=== PATIENT | female | born 1940 | race Caucasian/White ===

== ENCOUNTER → 2017-08-22 08:53 | Outpatient (CLI) | payer MEDICARE, SELFPAY ==
--- NOTE | 2017-08-22 08:56 | ADU_ITS ---
Reason For Study: Atherosclerosis with claudication Right Velocities Left Velocities Common Iliac Artery, dist = 90.1 cm./sec. Ext Iliac Artery, dist = 73.5 cm./sec. Common Femoral Artery, prox = 101.0 cm./sec. Common Femoral Artery, prox = 88.0 cm./sec. Supf Femoral Artery, prox = 185.0 cm./sec. Supf. Femoral Artery, prox = 191.0 cm./sec. Absent color flow and doppler signal mid SFA. Supf. Femoral Artery, mid = 164.0 cm./sec. Supf Femoral Artery, dist. = 63.9 cm./sec. Supf. Femoral Artery, dist = 107.0 cm./sec. Profunda Femoral Artery = 136.0 cm./sec. Profunda Femoral Artery = 118.0 cm./sec. Popliteal Artery, prox. = 52.2 cm./sec. Popliteal Artery, proximal, = 47.5 cm./sec. Popliteal Artery, mid = 23.1 cm./sec. Popliteal Artery, mid = 79.7 cm./sec. Popliteal Artery, dist = 36.7 cm./sec. Popliteal Artery, distal = 28.1 cm./sec. Post. Tibial Artery, prox = 34.3 cm./sec. Post. Tibial Artery, prox = 25.2 cm./sec. Post. Tibial Artery, mid = 21.9 cm./sec. Post Tibial Artery, mid = 26.9 cm./sec. Post. Tibial Artery, dist = 32.1 cm./sec. Post Tibial Artery, dist. = 68.6 cm./sec. Peroneal Artery,dist = 12.4 cm./sec. Peroneal Artery, prox = 19.5 cm./sec. Ant. Tibial Artery, prox = 25.9 cm./sec. Peroneal Artery, mid = 24.3 cm./sec. Ant. Tibial Artery, mid = 23.1 cm./sec. Peroneal Artery,dist. = 26.4 cm./sec. Ant. Tibial Artery, dist = 21.9 cm./sec. Ant.Tibial Artery, prox = 42.6 cm./sec. Ant Tibial Artery, mid = 19.8 cm./sec. Ant. Tibial Artery, distal = 26.9 cm./sec. Procedure Exam performed in department. Interpretation Summary 1. right mid SFA occluded and collateral flow noted. 2. Left leg with no appreciable stenosis. Ordering Physician: Ignacio Moon Referring Physician: Ignacio Moon Performed By: Sandra Elliott RVT
--- NOTE | 2017-08-22 08:56 | AAVD_ITS ---
Reason For Study: Atherosclerosis Aorta Measurements Aorta Doppler Measurements Proximal aorta measures1.9 x 1.9cm. in cross- Peak systolic flow velocities within the proximal sectional axis. aorta measure 62.9 cm/sec. Proximal aorta measures1.8cm. in longitudinal Peak systolic flow velocities within the mid axis. aorta measure 50.2 cm/sec. Mid aorta measures1.3 x 1.3cm. in cross-sectionalPeak systolic flow velocities within the distal axis. aorta measure 61.1 cm/sec. Mid aorta measures1.4cm. in longitudinal axis. Distal aorta measures1.2 x 1.3cm. in cross- sectional axis. Distal aorta measures1.2cm. in longitudinal axis. Left Iliac Artery Left iliac artery measures .95 cm. in the longitudinal axis. Left iliac artery measures .98 x .91 cm. in the cross-sectional axis. Peak systolic velocity in the left iliac artery measures 188.0 cm/sec. Right Iliac Artery Right iliac artery measures .88 cm. in the longitudinal axis. Right iliac artery measures .88 x .93 cm. in the cross-sectional axis. Peak systolic velocity in the right iliac artery measures 74.4 cm/sec. Procedure Aorta IVC Iliac vasculature or bypass grafts 81099. Exam performed in department. Interpretation Summary 1. No aortoiliac aneurysm or stenosis. Ordering Physician: Ignacio Moon Referring Physician: Ignacio Moon Performed By: Sandra Elliott RVT
--- NOTE | 2017-08-24 10:59 | LEAS ---
Arterial Study - Arterial Study Arterial Study: Date of scan 08/22/[address] Moon History: Patient with arterial claudication. Interpretation: Right lower extremity appears to have pulsatile flow noted down at the ankle with a biphasic flow the posterior tibial and NICOLE 0.67 cluster of monophasic flow at the dorsalis pedis with an NICOLE 0.54. Left lower extremity with the biphasic flow the posterior tibial with an NICOEL 0.72 more of a monophasic and of the dorsalis pedis with an NICOLE 0.51. Impression: 1. Right lower extremity moderate arterial occlusive disease with an NICOLE 0.67 and biphasic flow. 2. Left lower extremity with moderate arterial occlusive disease with an NICOLE 0.72 and biphasic flow.
== END ==
PROVIDERS: Family Provider Family Medicine; PCP Family Medicine; Visit Provider Surgery Vascular Surgery
DX: I70.213 Atherosclerosis of native arteries of extremities with intermittent claudication, bilateral legs (principal); I70.0 Atherosclerosis of aorta; I77.1 Stricture of artery
CPT/HCPCS: 93922; 93923; 93925; 93978

== ENCOUNTER → 2017-08-29 09:34 | Outpatient (CLI) | payer MEDICARE, SELFPAY ==
[2017-08-29 10:41] LABS: Amphetamine Urine VISTA NEGATIVE (<1000 ng/mL); Barbiturate Urine VISTA NEGATIVE (< 200 ng/mL); Benzodiazepine Urine VISTA NEGATIVE (< 200 ng/mL); Cocaine Urine VISTA NEGATIVE (< 300 ng/mL); Ecstacy Urine VISTA NEGATIVE (< 500 ng/mL); Methadone Urine VISTA NEGATIVE (< 300 ng/mL); PCP Urine VISTA NEGATIVE (< 25 ng/mL); THC Urine VISTA NEGATIVE (< 50 ng/mL); Vista UDS pH Range 5
== END ==
PROVIDERS: Family Provider Family Medicine; PCP Family Medicine; Visit Provider Anesthesiology Pain Medicine
DX: F11.20 Opioid dependence, uncomplicated (principal)
CPT/HCPCS: 80307

== ENCOUNTER → 2017-12-15 18:13 | Outpatient (CLI) | payer MEDICARE, SELFPAY ==
--- NOTE | 2017-12-15 18:24 | RAD_ITS ---
STUDY: X-RAY - THORACIC SPINE REASON FOR EXAM: Female, 77 years old. Back pain. History of back surgery. TECHNIQUE: 2 view(s) of the thoracic spine were obtained. COMPARISON: November 29, 2016. FINDINGS: Normal kyphosis of the thoracic spine. There is no substantial scoliosis. No significant disc space narrowing. Small marginal osteophytes at multiple levels unchanged. There is a 1.2 cm round sclerotic density within a mid thoracic vertebral body unchanged probably representing an incidental hemangioma. No fracture identified. Sternal wires are present. The soft tissue structures are unremarkable. RAD/Thoracic Spine 3 Views IMPRESSION: Mild multilevel degenerative changes of the thoracic spine. Osseous hemangioma unchanged. Electronically Signed: Kye Smith MD at 8:17 EST , Service support ,
--- NOTE | 2017-12-15 18:30 | RAD_ITS ---
STUDY: X-RAY - LUMBAR SPINE REASON FOR EXAM: Female, 77 years old. Back pain. History of lower back surgery. TECHNIQUE: 3 view(s) of the lumbar spine were obtained. COMPARISON: August 24, 2013. FINDINGS: Normal lumbar lordosis. There is no substantial scoliosis. There is a normal alignment of the vertebrae. Vertebral bodies are normal. There is minimal progression of disc space narrowing and endplate degenerative changes since the prior study. Facet hypertrophy at L4-5 and L5-S1 unchanged. The soft tissue structures are unremarkable. There are now total bilateral hip arthroplasties in normal alignment. RAD/Lumbar Spine 2 or 3 Views IMPRESSION: Progression of mild degenerative changes of the lumbar spine. Electronically Signed: Kye Smith MD at 8:13 EST , Service support ,
== END ==
PROVIDERS: Family Provider Family Medicine; PCP Family Medicine; Visit Provider Anesthesiology Pain Medicine
DX: M54.9 Dorsalgia, unspecified (principal)
CPT/HCPCS: 72072; 72100

== ENCOUNTER 2017-12-26 07:56 | Observation (INO) | payer MEDICARE, SELFPAY ==
[2017-12-26 07:56] VITALS: BP 141/80; PULSE 76; RESP 18; TEMP 35.7; O2SAT 97; BMI 38.9
--- NOTE | 2017-12-26 08:07 | CT_ITS ---
STUDY: CT ABDOMEN AND PELVIS WITHOUT CONTRAST REASON FOR EXAM: Female, 77 years old. Chronic low back pain with radiation into the left lower extremity. RADIATION DOSAGE (If Supplied By Facility): CTDIvol = ( 23.24 ) mGy, DLP = ( 1569.54 ) mGycm TECHNIQUE: Transaxial images were obtained from the dome of the diaphragm to the symphysis pubis without oral contrast, and without intravenous contrast. Sagittal and coronal images were reconstructed. Individualized dose optimization techniques were used for this CT. COMPARISON: None. FINDINGS: Mild degree of increased markings at the lung bases suggestive of either atelectasis and/or scarring. The visualized portions of the heart are within normal limits. Normal liver. The patient is status post cholecystectomy. Normal spleen. Normal pancreas. Normal bilateral adrenal glands. Normal right kidney. Normal left kidney. Normal visualized stomach. Normal small intestine. There are multiple colonic diverticula consistent with diverticulosis. The appendix is visualized and appears normal. There is diffuse atherosclerotic calcification of the abdominal aorta, without a demonstrated aneurysm. Normal inferior vena cava. There is borderline retroperitoneal lymphadenopathy with enlarged nodes no greater than 10mm in the short axis diameter. Normal urinary bladder. There is absence of the uterus consistent with a prior hysterectomy. Normal abdominal wall. There are degenerative changes of the visualized lumbar spine. The patient is status post bilateral total hip replacement. This causes beam hardening artifact and limits visualization of the pelvis. CT/Abdomen/Pelvis W IV Cont ONLY IMPRESSION: Mild increased markings at the lung bases suggestive of scarring. Sigmoid diverticulosis. Status post bilateral total hip replacement. Electronically Signed: Nas Valdovinos MD at 9:41 EST Tel [phone], Service support ,
--- NOTE | 2017-12-26 08:10 | ED.VISSUMM ---
- ER Visit Summary Date of Service: 12/26/17 Chief Complaint: Back pain History of Present Illness: The patient is a 77 F presents to the emergency department with increasing back pain. Patient has a history of lower back pain. She had lumbar discectomy and fusion about a year ago. Her postoperative course was complicated with NE and pulmonary embolus. She had to have four-vessel CABG. She states that after surgery, her back pain was better, but obviously she had other health conditions. Over the past 3 weeks, her pain is been worsening. She was having radiation down her left leg. She did see Dr. Perez in the office. She did receive an injection in her low back, sounds like in the SI joint because she is on Plavix and cannot have epidural injection. She states it did help the burning down her leg, but she still had persistent pain in her back. She basically lays flat all day. She cannot stand and walk any distance. Family states they have been basically having to do 24-hour care for her because of her pain. She is been taking oral medications with very little improvement. She has had no abdominal pain. She denies any problems of bowel or bladder. Physical Examination: Afebrile, vitals unremarkable. Well-appearing female no acute distress. Head is normocephalic, atraumatic. Pupil's equal round reactive, extraocular muscles intact. Neck supple. Heart regular rate and rhythm. Lungs clear, chest nontender. Abdomen soft, nontender, nondistended. No pulsatile mass. Patient has paraspinal tenderness in the lumbar area, but no bony tenderness. Straight leg raise is negative bilaterally. 2+ symmetric lower extremity pulses. 2+ reflexes. No clonus. No weakness of dorsiflexion, plantar flexion, or extensor hallucis longus bilaterally. Test Results: [] Emergency Department Course and Treatment: The patient presents to the emergency department with worsening low back pain. It is to the point where she is basically unable to function. She has been bedbound for almost 3 weeks. She has followed with Dr. Perez and even had injections, but is still not improving. IV was established patient was given fluids, morphine, and Zofran. She did have significant improvement of her pain but then had return of her spasm. Labs do show some mild elevation of her BUN and creatinine, but again I feel that this is more likely because she is basically just been bedbound and unable to really eat and take care of herself. I did obtain a CT of her abdomen and pelvis given her history of vascular disease. There is no evidence of AAA or other dangerous intra-abdominal process. At this time, given the patient's advanced age, inability to function, continued pain despite outpatient management I do feel that she is going to require admission for pain control, physical therapy, and potential MRI. The patient was discussed with the hospitalist and will be admitted. Treatment Plan: [] Disposition: Admission Impression: 1. Intractable back pain with inability to ambulate This note was generated with [employer] dictation software. It may contain incorrect words, spelling, and punctuation that were not noted in review of the chart prior to signing ED Disposition - Plan for ED Patient: Chief Complaint: Back Referrals: Ezequiel Aly [Primary Care Provider] -
[2017-12-26] MEDS: Morphine 4 MG/ML Syringe IV (08:25)
[2017-12-26] MEDS: Ondansetron 4 MG/2 ML Vial IV (08:25)
[2017-12-26] MEDS: 0.9% Normal Saline 1,000 ML 125 ML IV (08:26)
[2017-12-26 08:34] LABS: Absolute Lymphocyte Count 1.44 X10^3/ul (0.83-4.51); Absolute Neutrophil Count 5.1 X10^3/uL (2.0-7.7); Basophil# 0.02 X10^3/uL; Basophil% 0.3 % (0-1); Eosinophil# 0.08 X10^3/uL; Eosinophils% 1.1 % (0-5); Hematocrit 42.8 % (37-47); Hemoglobin 13.8 g/dl (12.0-15.0); Lymphocyte # 1.44 X10^3/ul (4.0); Lymphocyte % 20.5 % (19-41); Mean Corp Hgb Conc 32.2 g/gl (32-36); Mean Corpuscular Hgb 28.7 pg (27.0-32.0); Mean Platelet Vol. 11.5 fl (6.2-12.0); Monocyte# 0.42 X10^3/uL; Neutrophil # 5.05 X10^3/uL (2.7-7.7); Platelet Count 182 K/mm3 (150-450); RBC Distribution Width CV 15.2 % (11.6-14.6); RBC Distribution Width SD 49.7 fl (35.1-43.9); Red Blood Count 4.81 M/mm3 (4.2-5.4)
[2017-12-26 08:38] LABS: POSITIVE COUNT NO; POSITIVE DIFFERENTIAL NO; POSITIVE MORPHOLOGY NO
[2017-12-26 08:53] LABS: ALB/GLOB Ratio 0.9 RATIO (0.9-2.4); AST(SGOT) 17 U/L (15-37); Alanine Aminotransfer ALT/SGPT 28 U/L (13-56); Albumin, Serum 3.1 g/dL (3.2-5.0); Alkaline Phosphatase 72 U/L (45-117); Anion Gap 16 (5-15); BUN 20 mg/dL (7-18); Calcium,Total 8.8 mg/dL (8.5-10.1); Chloride 109 mmol/L (98-107); Creatinine, Serum 1.05 mg/dL (0.55-1.02); EST Glomerular Filtration Rate 54 mL/min (>60); Est Glom Filt Rate - Afr Amer 65 mL/min (>60); Estimated Creatinine Clearance 57.83 ml/min; Globulin 3.4 g/dL (2.2-4.2); Glucose 128 mg/dL (74-106); Potassium 4.2 mmol/L (3.5-5.1); Protein, Total 6.5 g/dL (6.4-8.2); Sodium Level 144 mmol/L (136-145)
[2017-12-26] MEDS: LORazepam 2 MG/ML Syringe 0.5 MG IV (10:10)
[2017-12-26 10:21] VITALS: BP 148/79; PULSE 90; RESP 16; O2SAT 97
[2017-12-26 10:22] LABS: Bacteria 0 SEEN /hpf (None Seen); Mucous, Urine 0 SEEN /hpf (<or=2+)
[2017-12-26 10:26] LABS: Color, Urine Yellow (Yellow); Glucose, Dipstick Normal (Normal); Ketone-Dipstick Negative (Negative); Leukocyte Esterase-Dipstick 25 /ul (Negative); Nitrite-Dipstick Negative (Negative); Occult Blood-Urine 10 /ul (Negative); Protein-Dipstick 15 mg/dl (Negative); Urine Bilirubin Dipstick Negative (Negative); Urine Clarity Sl. Cloudy (Clear); Urine Urobilinogen Normal (Normal)
[2017-12-26 10:33] LABS: Red Blood Cells-Urine 0-5 SEEN /hpf (0-5); Squamous Epithelial Cells - UA 0-5 SEEN /hpf (5-10); White Blood Cells 0-5 SEEN /hpf (0-5)
[2017-12-26 11:47] VITALS: BMI 40.4; BMI 40.5
--- NOTE | 2017-12-26 11:51 | HP.PCM_ITS ---
Problem List (1) H/O four vessel coronary artery bypass graft Status: Chronic Comment: March 2016 (2) Peripheral arterial disease Status: Chronic (3) Coronary artery disease Status: Chronic (4) Lumbar disc degenerative disease Status: Chronic (5) medical management Status: Chronic (6) Asthma Status: Chronic (7) Hypertension Status: Chronic (8) Osteoarthritis Status: Chronic (9) Type 2 diabetes mellitus Status: Chronic (10) Acute intractable lower back pain Status: Acute History of Present Illness Date of Admission: 12/26/17 Chief Complaint: Severe lower back pain for 3 days The patient is a 77 year old F with multiple comorbidities including coronary artery disease status post four-vessel CABG, lumbar degenerative disc disease status post discectomy and fusion about a year ago, postoperative course complicated by MA and PE came to ER for progressive worsening of back pain for last [address]. [address] Perez and she had a pain shot in SI joint 2 times, last one probably about a month or 2 months ago. She further says she cannot have epidural injection as she is on Plavix. She also has peripheral arterial disease of lower extremities She denies acute neurological symptoms of cauda equina syndrome including new weakness, numbness or tingling or saddle anesthesia/although she has chronic incontinence and chronic tingling of toes. In the ED, she had abdomen pelvis CT which showed diffuse atherosclerotic calcification of abdominal aorta without aneurysm. Degenerative changes of lumbar spine although there was lot of artifact secondary to bilateral hip replacement. Previous lumbar spine x-ray in December 2017 shows minimal progression of mild degenerative changes of the lumbar spine with facet hypertrophy of L4-L5 and L5-S1 unchanged ] Past Medical History Past Medical History (Chronic Problems): Chronic Problems H/O four vessel coronary artery bypass graft (Chronic) March 2016 Peripheral arterial disease (Chronic) Coronary artery disease (Chronic) Lumbar disc degenerative disease (Chronic) Asthma (Chronic) medical management (Chronic) Osteoarthritis (Chronic) Hypertension (Chronic) Type 2 diabetes mellitus (Chronic) Allergies tetanus immune globulin Adverse Reaction (Verified 12/26/17 07:58) Swelling TAPE Adverse Reaction (Uncoded 12/26/17 07:58) Rash Home Medications: Ambulatory Orders Medication Instructions Recorded Metoprolol Tartrate 100 mg PO BID 10/12/13 Pantoprazole Sodium [Protonix] 40 mg PO DAILY 10/12/13 Ascorbic Acid [Vitamin C] 500 mg PO DAILY@0800 04/22/15 Aspirin [Aspirin, Baby] 81 mg PO DAILY@0800 04/22/15 Cholestyramine/Aspartame 0 gm DAILY 04/22/15 [Cholestyramine Light Powder] ALPRAZolam [Xanax] 0.5 mg PO DAILY PRN PRN 12/26/17 Clopidogrel Bisulfate [Plavix] 75 mg PO DAILY 12/26/17 Ezetimibe 10 mg PO DAILY 12/26/17 Furosemide [Lasix] 40 mg PO DAILY 12/26/17 [place]-3 Fatty Acids/Fish Oil [Fish 1 each PO DAILY 12/26/17 Oil 1,000 mg Capsule] Oxycodone Myristate [Xtampza ER] 9 mg PO BID 12/26/17 Potassium Chloride [K-Tab ER] 20 meq PO DAILY 12/26/17 Sacubitril/Valsartan 49-51 mg 1 each PO BID 12/26/17 [Entresto 49 mg-51 mg Tablet] Spironolactone [Aldactone] 12.5 mg PO DAILY 12/26/17 Tizanidine HCl [Zanaflex] 2 mg PO TID 12/26/17 Surgical History: cataract, cholecystectomy, hysterectomy, - - Tubal ligation, 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 Psychiatric History: No pertinent psych hx 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 history Smoking Status: Former smoker - *Family History Maternal History Items: No pertinent history Paternal History Items: No pertinent history Sibling History Items: No pertinent history Review of Systems Constitutional: Denies: Chills, Fever, Weight Change HEENT: Denies: Head Aches, Sinus Congestion, Sinus Drainage Cardiovascular: Denies: Chest Pain, Palpitations Respiratory: Denies: Cough, Shortness of breath at rest, Sputum production Gastrointestinal: Denies: Abdominal Pain, Nausea, Vomiting Genitourinary: Denies: Dysuria Musculoskeletal: Reports: Back Pain, Joint Pain, Joint stiffness, Joint Tenderness, Neck Pain Skin: Denies: Rash, Wounds Neurological: Reports: Balance problems, Tingling - Chronic tingling for long time. Denies: Focal weakness, Numbness Psychiatric: Denies: Anxiety, Depression, Homicidal Ideations, Suicidal Ideations Hematologic/ Lymphatic: Denies: Easy Bruising, Easy Bleeding VTE Information - Inpt Only VTE Present on Admission: No VTE Mechan Device Prophylaxis: None VTE Pharm Prophylaxis ordered?: Yes Patient Problems: Active and Suspected Problems Acute intractable lower back pain (Acute) - Physical Exam General: Alert, Oriented x3, Cooperative HEENT: Atraumatic, PERRLA, EOMI, Normocephalic Oral: Moist Mucosa Neck: Supple, No JVD, Negative Carotid Bruits Lungs: Clear to auscultation, No rhonchi, No wheeze, No rales, Diminished - Bilateral lung bases Cardiovascular: Regular rate, Regular Rhythm, Normal S1, Normal S2, No murmurs, - Abdomen: Bowel Sounds Present, Soft, Non Tender, Non-Distended Extremities: Capillary Refill Less than 3 Seconds, Diminished Peripheral Pulses - Diminished posterior tibialis and dorsalis pedis bilaterally more on left leg, Edema - Mild pedal edema Skin: No rashes, No breakdown Musculoskeletal: Arthritic Changes, Muscle Wasting, Tenderness - At left SI joint and lumbar and sacrococcygeal region Lymphatic: No Cervical, Supraclavicular, or Inguinal Adenopathy Neurological: Cranial nerves II-XII grossly intact, Deep Tendon Reflexes 2+/4 and Symmetrical, Neuro grossly intact Psych/Mental Status: Normal Affect, Appropriate Vital Signs Temp Pulse Resp BP Pulse Ox 96.3 F L 90 16 148/79 H 97 12/26/17 07:56 12/26/17 10:21 12/26/17 10:21 12/26/17 10:21 12/26/17 10:21 Weight: 187 lb Body Mass Index (BMI) 40.4 Finger Stick Blood Glucose 112 Laboratory Tests Past 24 Hrs 12/26/17 12/26/17 12/26/17 08:25 08:25 10:20 WBC 7.0 RBC 4.81 Hgb 13.8 Hct 42.8 MCV 89.0 MCH 28.7 MCHC 32.2 RDW 15.2 H RDW Differential 49.7 H Plt Count 182 MPV 11.5 Immature Gran % (Auto) 0.100 Neut % (Auto) 72.0 H Lymph % (Auto) 20.5 [place] % (Auto) 6.0 Eos % (Auto) 1.1 Baso % (Auto) 0.3 Absolute Neuts (auto) 5.1 Absolute Lymphs (auto) 1.44 Total Counted Not Reportable Sodium 144 Potassium 4.2 Chloride 109 H Carbon Dioxide 19.0 L Anion Gap 16 H BUN 20 H Creatinine 1.05 H Estim Creat Clear Calc 57.83 Est GFR (MDRD) Af Amer 65 Est GFR (MDRD) Non-Af 54 L BUN/Creatinine Ratio 19.0 Glucose 128 H Calcium 8.8 Total Bilirubin 0.40 AST 17 ALT 28 Alkaline Phosphatase 72 Total Protein 6.5 Albumin 3.1 L Globulin 3.4 Albumin/Globulin Ratio 0.9 Urine Color Yellow Urine Clarity Sl. Cloudy Urine pH 5.0 Ur Specific [place] 1.010 Urine Protein 15 H Urine Glucose (UA) Normal Urine Ketones Negative Urine Occult Blood 10 H Urine Nitrite Negative Urine Bilirubin Negative Urine Urobilinogen Normal Ur Leukocyte Esterase 25 H Urine RBC 0-5 SEEN Urine WBC 0-5 SEEN Ur Squamous Epith Cells 0-5 SEEN Urine Bacteria 0 SEEN Urine Mucus 0 SEEN Assessment/Plan All Active Problems Acute intractable lower back pain (Acute) The patient is a 77 year old F with multiple comorbidities including coronary artery disease status post four-vessel CABG, lumbar degenerative disc disease status post discectomy and fusion about a year ago, postoperative course complicated by MA and PE came to ER for progressive worsening of back pain for last [address]. [address] Perez and she had a pain shot in SI joint 2 times, last one probably about a month or 2 months ago. She further says she cannot have epidural injection as she is on Plavix. She also has peripheral arterial disease of lower extremities She denies acute neurological symptoms of cauda equina syndrome including new weakness, numbness or tingling or saddle anesthesia/although she has chronic incontinence and chronic tingling of toes. In the ED, she had abdomen pelvis CT which showed diffuse atherosclerotic calcification of abdominal aorta without aneurysm. Degenerative changes of lumbar spine although there was lot of artifact secondary to bilateral hip replacement. Previous lumbar spine x-ray in December 2017 shows minimal progression of mild degenerative changes of the lumbar spine with facet hypertrophy of L4-L5 and L5-S1 unchanged 1. Acute on chronic back pain secondary to lumbosacral and SI degenerative arthritis: Patient is being admitted on the regular medical floor. Patient had 4 mg IV morphine and 0.5 mg IV Ativan in ED with no relief. Started on oxycodone IR and oxycodone CR with IV morphine for breakthrough pain. On Zanaflex. Started on Decadron 4 mg twice daily. Pain management consult. If pain is better, patient can have MRI lumbar sacral spine but for now there is no urgency and patient cannot lay back straight 2. Cardiac conditions: Coronary artery status post MA, four-vessel CABG, PE, peripheral arterial disease: Continue aspirin and Plavix. Continue cardiac medications including metoprolol, Entresto and Lasix. Patient follows Dr. Moon. 4. Diabetes mellitus type 2: Accu-Chek before meals and at bedtime and cover with NovoLog sliding scale. 5. Multiple chronic comorbidities including hypertension, chronic degenerative joint disease, asthma: Home medication reconciliation done. DVT prophylaxis: On Lovenox 40 mg subcut daily. Code Visit OBSV E&M: 99251 Initial observation care L3
[2017-12-26 12:41] VITALS: BP 103/45; PULSE 55; RESP 18; TEMP 36.4; O2SAT 98
[2017-12-26] MEDS: tiZANidine HCl 2 MG Tablet 4 MG PO ×2 (12:48→22:05)
[2017-12-26] MEDS: oxyCODONE CR 15 MG Tablet PO ×2 (12:49→22:04)
[2017-12-26] MEDS: Enoxaparin 40 MG/0.4 ML Syringe SC (12:50)
[2017-12-26] MEDS: 0.45% Normal Saline 1,000 ML 75 ML IV (12:55)
[2017-12-26 16:34] VITALS: BP 110/57; PULSE 57; RESP 18; TEMP 37; O2SAT 95
[2017-12-26] MEDS: oxyCODONE 5 MG Tablet 10 MG PO (18:55)
[2017-12-26] MEDS: SACUBITRIL/VALSARTAN 49-51 MG TABLET 1 EACH PO (22:03)
[2017-12-26 22:04] VITALS: BP 143/69; PULSE 67
[2017-12-26] MEDS: Metoprolol Tartrate 100 MG Tablet PO (22:04)
[2017-12-26] MEDS: Famotidine 20 MG Tablet PO (22:04)
[2017-12-26] MEDS: Zolpidem Tartrate 5 MG Tablet PO (22:05)
[2017-12-26 22:34] VITALS: BP 143/69; PULSE 68; RESP 14; TEMP 36.7; O2SAT 95
[2017-12-27 04:30] VITALS: BP 117/62; PULSE 71; RESP 16; TEMP 36.4; O2SAT 96
[2017-12-27] MEDS: tiZANidine HCl 2 MG Tablet 4 MG PO (04:55)
[2017-12-27] MEDS: oxyCODONE 5 MG Tablet 10 MG PO (04:55)
[2017-12-27 07:10] LABS: Anion Gap 8 (5-15); BUN 13 mg/dL (7-18); BUN/Creat Ratio 20.9 RATIO (10-20); Calcium,Total 8.5 mg/dL (8.5-10.1); Chloride 109 mmol/L (98-107); Creatinine, Serum 0.62 mg/dL (0.55-1.02); EST Glomerular Filtration Rate 98 mL/min (>60); Est Glom Filt Rate - Afr Amer 119 mL/min (>60); Estimated Creatinine Clearance 63.07 ml/min; Glucose 160 mg/dL (74-106); Potassium 4.1 mmol/L (3.5-5.1); Sodium Level 139 mmol/L (136-145)
[2017-12-27 08:44] VITALS: O2SAT 95
[2017-12-27 09:13] VITALS: BP 126/89; PULSE 70; RESP 18; TEMP 36.9; O2SAT 96
[2017-12-27] MEDS: oxyCODONE CR 15 MG Tablet PO (09:15)
[2017-12-27] MEDS: Senna/Docusate Sodium 1 Tablet 2 TABLET PO (09:16)
[2017-12-27] MEDS: Famotidine 20 MG Tablet PO (09:16)
[2017-12-27] MEDS: Aspirin 81 MG TAB.CHEW PO (09:16)
[2017-12-27 09:17] VITALS: PULSE 70
[2017-12-27] MEDS: Pantoprazole Sodium 40 MG Tablet PO (09:17)
[2017-12-27] MEDS: Spironolactone 25 MG Tablet 12.5 MG PO (09:17)
[2017-12-27] MEDS: Metoprolol Tartrate 100 MG Tablet PO (09:17)
[2017-12-27] MEDS: Clopidogrel Bisulfate 75 MG Tablet PO (09:17)
[2017-12-27] MEDS: Ascorbic Acid 500 MG Tablet PO (09:17)
[2017-12-27] MEDS: Ezetimibe 10 MG Tablet PO (09:18)
[2017-12-27] MEDS: Enoxaparin 40 MG/0.4 ML Syringe SC (09:18)
[2017-12-27] MEDS: Furosemide 40 MG Tablet PO (09:20)
[2017-12-27] MEDS: SACUBITRIL/VALSARTAN 49-51 MG TABLET 1 EACH PO (09:21)
--- NOTE | 2017-12-27 10:14 | PCM.DC ---
- Discharge Diagnoses Current Active Problems: Current Active and Chronic Problems H/O four vessel coronary artery bypass graft (Chronic) March 2016 Peripheral arterial disease (Chronic) Coronary artery disease (Chronic) Lumbar disc degenerative disease (Chronic) Acute intractable lower back pain (Acute) You will use the following diet at home:: Calorie/Carbohydrate Controlled (specify 1200, 1400, etc) - 1800 ADA diet, Cardiac Your food should be the consistency of: Regular Discharge Activity: May Not Drive, May not drive while taking narcotic pain medications. Weight Bearing Status: Weight bearing as tolerated Call your doctor if you observe: Fever of 101 or Higher, Change in Color, Inability to urinate, Using more than one pad per hour, Shortness of breath, Dizziness, Fainting spells, Swelling in the ankles, Calf discomfort Allergies/Adverse Reactions: Allergies tetanus immune globulin Adverse Reaction (Verified 12/26/17 07:58) Swelling TAPE Adverse Reaction (Uncoded 12/26/17 07:58) Rash Medications to take at Discharge Pantoprazole Sodium [Protonix] 40 mg PO DAILY 10/12/13 Ascorbic Acid [Vitamin C] 500 mg PO DAILY@0800 04/22/15 Aspirin [Aspirin, Baby] 81 mg PO DAILY@0800 04/22/15 Cholestyramine/Aspartame [Cholestyramine Light Powder] 0 gm BID 04/22/15 ALPRAZolam [Xanax] 0.5 mg PO DAILY PRN PRN 12/26/17 Clopidogrel Bisulfate [Plavix] 75 mg PO DAILY 12/26/17 Ezetimibe 10 mg PO DAILY 12/26/17 Furosemide [Lasix] 40 mg PO DAILY 12/26/17 Metoprolol Succinate 100 mg PO 12/26/17 [place]-3 Fatty Acids/Fish Oil [Fish Oil 1,000 mg Capsule] 1 each PO DAILY 12/26/17 Oxycodone Myristate [Xtampza ER] 9 mg PO BID 12/26/17 Potassium Chloride [K-Tab ER] 20 meq PO DAILY 12/26/17 Sacubitril/Valsartan 49-51 mg [Entresto 49 mg-51 mg Tablet] 1 each PO BID 12/26/17 Spironolactone [Aldactone] 12.5 mg PO DAILY 12/26/17 Tizanidine HCl [Zanaflex] 2 mg PO TID 12/26/17 Dexamethasone 1 mg PO UD #21 tab 12/27/17 Senna/Docusate Sodium [Senokot-S] 2 tablet PO BID PRN PRN tablet 12/27/17 The following prescriptions were given: Dexamethasone 1 mg PO UD #21 tab Primary Care Physician: Ezequiel Aly [Primary Care Provider] - Please follow up with your Primary Care Physician in: in 1-2 weeks Test Results: Test results from this visit will be discussed in further detail at your follow-up appointment, if applicable. Please Follow Up With: Yane Perez MD When: in 1-2 weeks to schedule for epidural injection/MRI LS spine
--- NOTE | 2017-12-27 10:16 | DS.PCM_ITS ---
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 Peripheral arterial disease (Chronic) Coronary artery disease (Chronic) Lumbar disc degenerative disease (Chronic) Asthma (Chronic) medical management (Chronic) Osteoarthritis (Chronic) Hypertension (Chronic) Type 2 diabetes mellitus (Chronic) Hospital Course and Treatment Summary of Care Provided: [] The patient is a 77 year old F with multiple comorbidities including coronary artery disease status post four-vessel CABG, lumbar degenerative disc disease status post discectomy and fusion about a year ago, postoperative course complicated by OK and PE came to ER for progressive worsening of back pain for last [address]. [address] Perez and she had a pain shot in SI joint 2 times, last one probably about a month or 2 months ago. She further says she cannot have epidural injection as she is on Plavix. She also has peripheral arterial disease of lower extremities She denies acute neurological symptoms of cauda equina syndrome including new weakness, numbness or tingling or saddle anesthesia or paresthesia although she has chronic incontinence and chronic tingling of toes. In the ED, she had abdomen pelvis CT which showed diffuse atherosclerotic calcification of abdominal aorta without aneurysm. Degenerative changes of lumbar spine although there was lot of artifact secondary to bilateral hip replacement. Previous lumbar spine x-ray in December shows minimal progression of mild degenerative changes of the lumbar spine with facet hypertrophy of L4-L5 and L5-S1 unchanged. 1. Acute on chronic back pain secondary to lumbosacral and SI degenerative arthritis: Patient is being admitted on the regular medical floor. Patient had 4 mg IV morphine and 0.5 mg IV Ativan in ED with no relief. Started on oxycodone IR and oxycodone CR with IV morphine for breakthrough pain. On Zanaflex. Patient was started on Decadron 4 mg twice daily. The patient was seen by pain management Dr. Perez and he recommended to continue oxycodone CR. Advised follow-up in 1 week and will set up for epidural injection after 5 days of holding Plavix. Patient was able to walk to the bathroom on walker. Back pain resolved. Patient has mild tenderness over left sacral region. Follow with Dr. Perez in 1 week and might set up with MRI lumbar sacral spine as I do not see acute need in view of lack of neurological symptoms patient had CT abdomen and recent lumbar x-ray. 2. Cardiac conditions: Coronary artery status post OK, four-vessel CABG, PE, peripheral arterial disease: Continue aspirin and Plavix. Continue cardiac medications including metoprolol, Entresto and Lasix. Patient follows Dr. Moon. 4. Diabetes mellitus type 2: Accu-Chek before meals and at bedtime and cover with NovoLog sliding scale. 5. Multiple chronic comorbidities including hypertension, chronic degenerative joint disease, asthma: Home medication reconciliation done. DVT prophylaxis: On Lovenox 40 mg subcut daily. Discharge medication reconciliation done. Follow-up instructions completed. Patient given prescription for oxycodone controlled release, 9 mg twice daily total of 7 tablets, Zanaflex 2 mg 3 times daily and tapering dose of Decadron. Discharge medications and follow-up discussed with the patient and her daughter near the bedside. Total time spent, exact 35 minutes on discharge meds reconciliation, examination, review of imaging and blood test and discussion with the patient on follow-up instructions. Subjective: Seen and examined. Patient denies acute back pain and was able to walk to the bathroom on walker. Patient was able to move around with no significant back pain. Objective: General: Alert, Oriented x3, Cooperative HEENT: Atraumatic, PERRLA, EOMI, Normocephalic Oral: Moist Mucosa Neck: Supple, No JVD, Negative Carotid Bruits Lungs: Clear to auscultation, No rhonchi, No wheeze, No rales, Diminished - Bilateral lung bases Cardiovascular: Regular rate, Regular Rhythm, Normal S1, Normal S2, No murmurs, - Abdomen: Bowel Sounds Present, Soft, Non Tender, Non-Distended Extremities: Capillary Refill Less than 3 Seconds, Diminished posterior tibialis and dorsalis pedis bilaterally more on left leg, Edema -chronic mild pedal edema Skin: No rashes, No breakdown Musculoskeletal: Arthritic Changes, Muscle Wasting, mild tenderness on deep palpation- At left SI joint and lumbar and sacrococcygeal region Lymphatic: No Cervical, Supraclavicular, or Inguinal Adenopathy Neurological: Cranial nerves II-XII grossly intact, Deep Tendon Reflexes 2+/4 and Symmetrical, Neuro grossly intact Psych/Mental Status: Normal Affect, Appropriate - Physical Exam Vital Signs Temp Pulse Resp BP Pulse Ox 98.4 F 70 18 126/89 H 96 12/27/17 09:13 12/27/17 09:17 12/27/17 09:13 12/27/17 09:13 12/27/17 09:13 Oxygen Delivery Method Room Air Weight: 186 lb 15.232 oz Body Mass Index (BMI) 40.4 Finger Stick Blood Glucose 112 Intake and Output for Last 24 Hours 12/25/17 12/26/17 12/27/17 23:59 23:59 23:59 Intake Total 980 / 980 1115 / 1115 Balance 980 / 980 1115 / 1115 Laboratory Tests Past 24 Hrs 12/26/17 12/27/17 10:20 06:05 Sodium 139 Potassium 4.1 Chloride 109 H Carbon Dioxide 22.0 Anion Gap 8 BUN 13 Creatinine 0.62 Estim Creat Clear Calc 63.07 Est GFR (MDRD) Af Amer 119 Est GFR (MDRD) Non-Af 98 BUN/Creatinine Ratio 20.9 H Glucose 160 H Calcium 8.5 Urine Color Yellow Urine Clarity Sl. Cloudy Urine pH 5.0 Ur Specific [place] 1.010 Urine Protein 15 H Urine Glucose (UA) Normal Urine Ketones Negative Urine Occult Blood 10 H Urine Nitrite Negative Urine Bilirubin Negative Urine Urobilinogen Normal Ur Leukocyte Esterase 25 H Urine RBC 0-5 SEEN Urine WBC 0-5 SEEN Ur Squamous Epith Cells 0-5 SEEN Urine Bacteria 0 SEEN Urine Mucus 0 SEEN Discharge Activity: May Not Drive, May not drive while taking narcotic pain medications. Weight Bearing Status: Weight bearing as tolerated Call your doctor if you observe: Fever of 101 or Higher, Change in Color, Inability to urinate, Using more than one pad per hour, Shortness of breath, Dizziness, Fainting spells, Swelling in the ankles, Calf discomfort Home Medications: Medications to take at Discharge Pantoprazole Sodium [Protonix] 40 mg PO DAILY 10/12/13 Ascorbic Acid [Vitamin C] 500 mg PO DAILY@0800 04/22/15 Aspirin [Aspirin, Baby] 81 mg PO DAILY@0800 04/22/15 Cholestyramine/Aspartame [Cholestyramine Light Powder] 0 gm BID 04/22/15 ALPRAZolam [Xanax] 0.5 mg PO DAILY PRN PRN 12/26/17 Clopidogrel Bisulfate [Plavix] 75 mg PO DAILY 12/26/17 Ezetimibe 10 mg PO DAILY 12/26/17 Furosemide [Lasix] 40 mg PO DAILY 12/26/17 Metoprolol Succinate 100 mg PO 12/26/17 Zebulon-3 Fatty Acids/Fish Oil [Fish Oil 1,000 mg Capsule] 1 each PO DAILY 12/26/17 Potassium Chloride [K-Tab ER] 20 meq PO DAILY 12/26/17 Sacubitril/Valsartan 49-51 mg [Entresto 49 mg-51 mg Tablet] 1 each PO BID 12/26/17 Spironolactone [Aldactone] 12.5 mg PO DAILY 12/26/17 Dexamethasone 1 mg PO UD #21 tab 12/27/17 Oxycodone Myristate [Xtampza ER] 9 mg PO BID #7 cap.spr.12 12/27/17 Senna/Docusate Sodium [Senokot-S] 2 tablet PO BID PRN PRN tablet 12/27/17 Tizanidine HCl [Zanaflex] 2 mg PO TID #30 capsule 12/27/17 Following Prescrptions Were Given to Patient: Dexamethasone 1 mg PO UD #21 tab Oxycodone Myristate [Xtampza ER] 9 mg PO BID #7 cap.spr.12 Tizanidine HCl [Zanaflex] 2 mg PO TID #30 capsule Primary Care Physician: Ezequiel Aly [Primary Care Provider] - Please follow up with your Primary Care Physician in: in 1-2 weeks Please Follow Up With: Yane Perez MD When: in 1-2 weeks to schedule for epidural injection/MRI LS spine Medical Necessity - Tobacco Use Smoking Status: Former smoker Meaningful Use Info Meaningful Use Diagnoses (Choose all that apply): None applicable Code Visit OBSV E&M: 06495 Observation care discharge
[2017-12-27] MEDS: tiZANidine HCl 2 MG Tablet PO (13:11)
== END 2017-12-27 13:37 | disposition home or self-care (01) ==
LOC: ED 08:44 → MS3 11:03
PROVIDERS: Admitting Provider Internal Medicine; Emergency Provider Emergency Medicine; Family Provider Family Medicine; PCP Family Medicine; Visit Provider Internal Medicine
DX: M54.5 Low back pain (principal); M51.36 Other intervertebral disc degeneration, lumbar region; I25.10 Atherosclerotic heart disease of native coronary artery without angina pectoris; M19.90 Unspecified osteoarthritis, unspecified site; I10 Essential (primary) hypertension; J45.909 Unspecified asthma, uncomplicated; Z95.1 Presence of aortocoronary bypass graft; Z79.899 Other long term (current) drug therapy; Z79.82 Long term (current) use of aspirin; I25.2 Old myocardial infarction; Z86.711 Personal history of pulmonary embolism; Z98.1 Arthrodesis status; Z87.891 Personal history of nicotine dependence; Z79.02 Long term (current) use of antithrombotics/antiplatelets; E11.51 Type 2 diabetes mellitus with diabetic peripheral angiopathy without gangrene
CPT/HCPCS: 36415; 74177; 80048; 80053; 81001; 85025; 96361; 96372; 96374; 96375; 97162; 97165; 97802; 97803; 99218; 99282; J7030; Q9967; A4216; G0378; J2405

== ENCOUNTER → 2018-03-01 16:14 | Outpatient (CLI) | payer MEDICARE, SELFPAY ==
[2017-12-26 11:47] VITALS: BMI 40.4
[2018-03-01 18:11] LABS: Amphetamine Urine VISTA NEGATIVE (<1000 ng/mL); Barbiturate Urine VISTA NEGATIVE (< 200 ng/mL); Benzodiazepine Urine VISTA NEGATIVE (< 200 ng/mL); Cocaine Urine VISTA NEGATIVE (< 300 ng/mL); Ecstacy Urine VISTA NEGATIVE (< 500 ng/mL); Methadone Urine VISTA NEGATIVE (< 300 ng/mL); PCP Urine VISTA NEGATIVE (< 25 ng/mL); THC Urine VISTA NEGATIVE (< 50 ng/mL); Vista UDS pH Range 5
--- OUTSIDE RECORDS SUMMARY | 2018-05-03 18:45 | XMS RPT_ITS ---
:1940 Author Organization OHIP Support Name Relationship Address Phone LO [place]O Unavailable [address] + [place] [address] R Unavailable Unavailable Unavailable LAURA, ANNE/POA Unavailable Unavailable + [place] [address] LO [place] Unavailable [address] + [place] [address] R Unavailable Unavailable Unavailable LAURA, ANNE/POA Unavailable Unavailable + [place] [address] LO [place] Unavailable [address] + [place] [address] R Unavailable Unavailable Unavailable LAURA, ANNE/POA Unavailable Unavailable + [place] [address] LO [place] Unavailable [address] + [place] [address] R Unavailable Unavailable Unavailable LAURA, ANNE/POA Unavailable Unavailable + [place] [address] LO [place] Unavailable [address] + [place] [address] R Unavailable Unavailable Unavailable LAURA, ANNE Unavailable Unavailable + [place] [address] NOT GIVEN Unavailable Unavailable Unavailable LAURA, ANNE Unavailable [address] + [place] [address] NOT GIVEN Unavailable Unavailable Unavailable LAURA, ANNE Unavailable [address] + [place] [address] NOT GIVEN Unavailable Unavailable Unavailable LAURA, ANEN Unavailable [address] + [place] [address] NOT GIVEN Unavailable Unavailable Unavailable LAURA, ANNE Unavailable [address] + [place] [address] LO [place] Unavailable [address] + [place] [address] R Unavailable Unavailable Unavailable LAURA ANNE Unavailable Unavailable + [place] [address] LO [place] Unavailable [address] + [place] [address] R Unavailable Unavailable Unavailable LAURA ANNE Unavailable Unavailable + [place] [address] NOT GIVEN Unavailable Unavailable Unavailable LAURA, ANNE Unavailable [address] + [place] [address] NOT GIVEN Unavailable Unavailable Unavailable LAURA, ANNE Unavailable [address] + [place] [address] NOT GIVEN Unavailable Unavailable Unavailable LAURA, ANNE Unavailable [address] + [place] [address] NOT GIVEN Unavailable Unavailable Unavailable LAURA ANNE Unavailable [address] + [place] [address] NOT GIVEN Unavailable Unavailable Unavailable LAURA ANNE Unavailable [address] + [place] [address] Care Team Providers Name Role Phone VACCARIELLO, ANTONI Admitting Unavailable VACCARIELLO, ANTONI Attending Unavailable VACCARIELLO, ANTONI Primary Care Unavailable VACCARIELLO, ANTONI Consulting Unavailable PROVIDER, UNKNOWN Consulting Unavailable PROVIDER, UNKNOWN Consulting Unavailable PROVIDER, UNKNOWN Consulting Unavailable VACCARIELLO, ANTONI Consulting Unavailable SURAJ, ANNMARIE Primary Care Unavailable SURAJ, ANNMARIE Attending Unavailable SURAJ, ANNMARIE Admitting Unavailable PROVIDER, UNKNOWN Consulting Unavailable PROVIDER, UNKNOWN Consulting Unavailable PROVIDER, UNKNOWN Consulting Unavailable VACCARIELLO, ANTONI Admitting Unavailable VACCARIELLO, ANTONI Attending Unavailable VACCARIELLO, ANTONI Primary Care Unavailable VACCARIELLO, ANTONI Consulting Unavailable PROVIDER, UNKNOWN Consulting Unavailable PROVIDER, UNKNOWN Consulting Unavailable PROVIDER, UNKNOWN Consulting Unavailable VACCARIELLO, ANTONI Admitting Unavailable VACCARIELLO, ANTONI Attending Unavailable VACCARIELLO, ANTONI Primary Care Unavailable VACCARIELLO, ANTONI Consulting Unavailable PROVIDER, UNKNOWN Consulting Unavailable PROVIDER, UNKNOWN Consulting Unavailable PROVIDER, UNKNOWN Consulting Unavailable VACCARIELLO, ANTONI Admitting Unavailable VACCARIELLO, ANTONI Attending Unavailable VACCARIELLO, ANTONI Primary Care Unavailable VACCARIELLO, ANTONI Consulting Unavailable PROVIDER, UNKNOWN Consulting Unavailable PROVIDER, UNKNOWN Consulting Unavailable PROVIDER, UNKNOWN Consulting Unavailable VACCARIELLO, ANTONI Consulting Unavailable SURAJ, ANNMARIE Primary Care Unavailable SURAJ, ANNMARIE Attending Unavailable SURAJ, ANNMARIE Admitting Unavailable PROVIDER, UNKNOWN Consulting Unavailable PROVIDER, UNKNOWN Consulting Unavailable PROVIDER, UNKNOWN Consulting Unavailable SURAJ, ANNMARIE Admitting Unavailable SURAJ, ANNMARIE Attending Unavailable SURAJ, ANNMARIE Primary Care Unavailable SURAJ, ANNMARIE Admitting Unavailable SURAJ, ANNMARIE Attending Unavailable SURAJ, ANNMARIE Primary Care Unavailable VACCARIELLO, ANTONI Consulting Unavailable PROVIDER, UNKNOWN Consulting Unavailable PROVIDER, UNKNOWN Consulting Unavailable PROVIDER, UNKNOWN Consulting Unavailable SURAJ, ANNMARIE Admitting Unavailable SURAJ, ANNMARIE Attending Unavailable SURAJ, ANNMARIE Primary Care Unavailable VACCARIELLO, ATNONI Consulting Unavailable PROVIDER, UNKNOWN Consulting Unavailable PROVIDER, UNKNOWN Consulting Unavailable PROVIDER, UNKNOWN Consulting Unavailable Basali, Ayman Attending Unavailable Basali, Ayman Referring Unavailable Vaccariello, Antoni Primary Care Unavailable Ignacio Moon Attending Unavailable Ignacio Moon Referring Unavailable Vaccariello, Antoni Primary Care Unavailable Basali, Ayman Attending Unavailable Basali, Ayman Referring Unavailable Vaccariello, Antoni Primary Care Unavailable Basali, Ayman Attending Unavailable Vaccariello, Antoni Primary Care Unavailable Vaccariello, Antoni Primary Care Unavailable Miles, Gil Admitting Unavailable Miles, Gil Attending Unavailable Basali, Ayman Consulting Unavailable Miles, Gil Admitting Unavailable Miles, Gil Attending Unavailable Vaccariello, Antoni Primary Care Unavailable Miles, Gil Consulting Unavailable Miles, Gil Admitting Unavailable Miles, Gil Attending Unavailable Vaccariello, Antoni Primary Care Unavailable Basali, Ayman Consulting Unavailable Miles, Gil Consulting Unavailable PROBLEMS PROBLEMS DATE TYPE CONDITION / CODE ATTENDING STATUS SOURCE 03/02/2018 Unknown F11.20 - Opioid Basali, Ayman Active [place] dependence, Community uncomplicated / Hospital F11.20(ICD-10) Repository 12/27/2017 Unknown M54.5 - Low back Miles, Gil Active [facility] pain / M54.5(ICD-10) [facility] Hospital Repository 03/28/2017 Principle Encounter for VACCARIELLO, Active [facility] preprocedural [facility] examination / Repository I58916(ICD-10) 03/15/2017 Admitting Atherosclerotic SURAJ, 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 / I2510(ICD-10) 03/15/2017 Principle Atherosclerotic SURAJ, 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 / I2510(ICD-10) 03/15/2017 Secondary Presence of SURAJ, Active [facility] Diagnosis aortocoronary bypass [facility] graft / Z951(ICD-10) Hospital Repository 03/15/2017 Secondary Heart failure, SURAJ, Active [facility] Diagnosis unspecified / [facility] I509(ICD-10) Hospital Repository 03/15/2017 Secondary Other pulmonary SURAJ, Active [facility] Diagnosis embolism without [facility] acute cor pulmonale Hospital / I2699(ICD-10) Repository PROCEDURES PROCEDURES No Procedure Records FoundRESULTS RESULTS URINE DRUG SCREEN Collected: 03/01/2018 Status: F Source: NII (VISTA) 4:24 PM REPOSITORY Order Comment: List of Drugs Taken or Suspected? UNK TYPE CODE TESTS RESULT OUT OF RANGE REFERENCE UNITS LAB L505.0075 TO BE Normal CONFIRMED Result Comment: CONFIRMATORY TESTING FOR ALL POSITIVE URINE DRUG SCREEN RESULTS WILL ONLY BE SENT OUT UPON PHYSICIAN ORDER. VISTA Urine Drug Screen methods provide only preliminary analytical test results. A more specific alternate chemical method must be used in order to obtain a confirmed analytical result. Gas chromatography/mass spectrometery (GC/MS) is the preferred confirmatory method. Clinical consideration and professional judgement should be applied to any drug of abuse test result, particularly when preliminary positive results are used. URINE TCA TESTING MUST BE ORDERED SEPARATELY. USE TEST MNEMONIC: [facility] LAB L505.5005 VISTA UDS PH 5 Normal LAB L505.5015 <1000 ng/mL AMPHETAMINES Normal NEGATIVE LAB L505.5025 < 200 ng/mL BARBITIURATES Normal NEGATIVE LAB L505.5035 < 200 ng/mL BENZODIAZIPINE Normal NEGATIVE LAB L505.5045 < 300 ng/mL COCAINE Normal NEGATIVE LAB L505.5055 < 500 ng/mL ECSTACY Normal NEGATIVE LAB L505.5065 < 300 ng/mL METHADONE Normal NEGATIVE LAB L505.5075 < 300 High ng/mL OPIATES POSITIVE LAB L505.5085 < 25 ng/mL PCP Normal NEGATIVE LAB L505.5095 < 50 ng/mL THC Normal NEGATIVE Performed By: #### L505.5000 #### [facility] [address] [place], [address] DISCHARGE SUMMARY Observed: 12/27/2017 Status: F Source: SUMRALL 4:58 PM REPOSITORY [facility] Medical Records Department [address] [place] [address] Discharge Summary 12/27/17 1016 MR#: [id number] Acct: [id number] Name: THANG SULTANA V Rep #: [id number] : 1940 77 From: Gil Aquino MD PCP: Antoni Chou MD Status: DIS CIRILO Y Location: [place] [id number] 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 Peripheral arterial disease (Chronic) Coronary artery disease (Chronic) Lumbar disc degenerative disease (Chronic) Asthma (Chronic) medical management (Chronic) Osteoarthritis (Chronic) Hypertension (Chronic) Type 2 diabetes mellitus (Chronic) Hospital Course and Treatment Summary of Care Provided: [] The patient is a 77 year old F with multiple comorbidities including coronary artery disease status post four-vessel CABG, lumbar degenerative disc disease status post discectomy and fusion about a year ago, postoperative course complicated by [place] and PE came to ER for progressive worsening of back pain for last [address]. [address] Perez and she had a pain shot in SI joint 2 times, last one probably about a month or 2 months ago. She further says she cannot have epidural injection as she is on Plavix. She also has peripheral arterial disease of lower extremities She denies acute neurological symptoms of cauda equina syndrome including new weakness, numbness or tingling or saddle anesthesia or paresthesia although she has chronic incontinence and chronic tingling of toes. In the ED, she had abdomen pelvis CT which showed diffuse atherosclerotic calcification of abdominal aorta without aneurysm. Degenerative changes of lumbar spine although there was lot of artifact secondary to bilateral hip replacement. Previous lumbar spine x-ray in December shows minimal progression of mild degenerative changes of the lumbar spine with facet hypertrophy of L4-L5 and L5-S1 unchanged. 1. Acute on chronic back pain secondary to lumbosacral and SI degenerative arthritis: Patient is being admitted on the regular medical floor. Patient had 4 mg IV morphine and 0.5 mg IV Ativan in ED with no relief. Started on oxycodone IR and oxycodone CR with IV morphine for breakthrough pain. On Zanaflex. Patient was started on Decadron 4 mg twice daily. The patient was seen by pain management Dr. Perez and he recommended to continue oxycodone CR. Advised follow-up in 1 week and will set up for epidural injection after 5 days of holding Plavix. Patient was able to walk to the bathroom on walker. Back pain resolved. Patient has mild tenderness over left sacral region. Follow with Dr. Perez in 1 week and might set up with MRI lumbar sacral spine as I do not see acute need in view of lack of neurological symptoms patient had CT abdomen and recent lumbar x-ray. 2. Cardiac conditions: Coronary artery status post [place], four- vessel CABG, PE, peripheral arterial disease: Continue aspirin and Plavix. Continue cardiac medications including metoprolol, Entresto and Lasix. Patient follows Dr. Moon. 4. Diabetes mellitus type 2: Accu-Chek before meals and at bedtime and cover with NovoLog sliding scale. 5. Multiple chronic comorbidities including hypertension, chronic degenerative joint disease, asthma: Home medication reconciliation done. DVT prophylaxis: On Lovenox 40 mg subcut daily. Discharge medication reconciliation done. Follow-up instructions completed. Patient given prescription for oxycodone controlled release, 9 mg twice daily total of 7 tablets, Zanaflex 2 mg 3 times daily and tapering dose of Decadron. Discharge medications and follow-up discussed with the patient and her daughter near the bedside. Total time spent, exact 35 minutes on discharge meds reconciliation, examination, review of imaging and blood test and discussion with the patient on follow-up instructions. Subjective: Seen and examined. Patient denies acute back pain and was able to walk to the bathroom on walker. Patient was able to move around with no significant back pain. Objective: General: Alert, Oriented x3, Cooperative HEENT: Atraumatic, PERRLA, EOMI, Normocephalic Oral: Moist Mucosa Neck: Supple, No JVD, Negative Carotid Bruits Lungs: Clear to auscultation, No rhonchi, No wheeze, No rales, Diminished - Bilateral lung bases Cardiovascular: Regular rate, Regular Rhythm, Normal S1, Normal S2, No murmurs, - Abdomen: Bowel Sounds Present, Soft, Non Tender, Non-Distended Extremities: Capillary Refill Less than 3 Seconds, Diminished posterior tibialis and dorsalis pedis bilaterally more on left leg, Edema -chronic mild pedal edema Skin: No rashes, No breakdown Musculoskeletal: Arthritic Changes, Muscle Wasting, mild tenderness on deep palpation- At left SI joint and lumbar and sacrococcygeal region Lymphatic: No Cervical, Supraclavicular, or Inguinal Adenopathy Neurological: Cranial nerves II-XII grossly intact, Deep Tendon Reflexes 2+/4 and Symmetrical, Neuro grossly intact Psych/Mental Status: Normal Affect, Appropriate - Physical Exam Vital Signs Temp Pulse Resp BP Pulse Ox 98.4 F 70 18 126/89 H 96 12/27/17 09:13 12/27/17 09:17 12/27/17 09:13 12/27/17 09:13 12/27/17 09:13 Oxygen Delivery Method Room Air Weight: 186 lb 15.232 oz Body Mass Index (BMI) 40.4 Finger Stick Blood Glucose 112 Intake and Output for Last 24 Hours Intake Total 980 / 980 1115 / 1115 Balance 980 / 980 1115 / 1115 Laboratory Tests Past 24 Hrs Sodium 139 Potassium 4.1 Chloride 109 H Carbon Dioxide 22.0 Anion Gap 8 BUN 13 Creatinine 0.62 Estim Creat Clear Calc 63.07 Discharge Activity: May Not Drive, May not drive while taking narcotic pain medications. Weight Bearing Status: Weight bearing as tolerated Call your doctor if you observe: Fever of 101 or Higher, Change in Color, Inability to urinate, Using more than one pad per hour, Shortness of breath, Dizziness, Fainting spells, Swelling in the ankles, Calf discomfort Home Medications: Medications to take at Discharge Pantoprazole Sodium [Protonix] 40 mg PO DAILY 10/12/13 Ascorbic Acid [Vitamin C] 500 mg PO DAILY@0804/22/15 Aspirin [Aspirin, Baby] 81 mg PO DAILY@79904/22/15 Cholestyramine/Aspartame [Cholestyramine Light Powder] 0 gm BID 04/22/15 ALPRAZolam [Xanax] 0.5 mg PO DAILY PRN PRN 12/26/17 Clopidogrel Bisulfate [Plavix] 75 mg PO DAILY 12/26/17 Ezetimibe 10 mg PO DAILY 12/26/17 Furosemide [Lasix] 40 mg PO DAILY 12/26/17 Metoprolol Succinate 100 mg PO 12/26/17 Cheyenne-3 Fatty Acids/Fish Oil [Fish Oil 1,000 mg Capsule] 1 each PO DAILY 12/26/17 Potassium Chloride [K-Tab ER] 20 meq PO DAILY 12/26/17 Sacubitril/Valsartan 49-51 mg [Entresto 49 mg-51 mg Tablet] 1 each PO BID 12/26/17 Spironolactone [Aldactone] 12.5 mg PO DAILY 12/26/17 Dexamethasone 1 mg PO UD #21 tab 12/27/17 Oxycodone Myristate [Xtampza ER] 9 mg PO BID #7 cap.spr.12 12/27/17 Senna/Docusate Sodium [Senokot-S] 2 tablet PO BID PRN PRN tablet 12/27/17 Tizanidine HCl [Zanaflex] 2 mg PO TID #30 capsule 12/27/17 Following Prescrptions Were Given to Patient: Dexamethasone 1 mg PO UD #21 tab Oxycodone Myristate [Xtampza ER] 9 mg PO BID #7 cap.spr.12 Tizanidine HCl [Zanaflex] 2 mg PO TID #30 capsule Primary Care Physician: Antoni Chou [Primary Care Provider] - Please follow up with your Primary Care Physician in: in 1- 2 weeks Please Follow Up With: Yane Perez MD When: in 1-2 weeks to schedule for epidural injection/MRI LS spine Medical Necessity - Tobacco Use Smoking Status: Former smoker Meaningful Use Info Meaningful Use Diagnoses (Choose all that apply): None applicable Code Visit OBSV E AND M: 23749 Observation care discharge 12/27/17 2320 <Electronically signed by Gil Aquino MD> Date Gil Aquino MD Cosigner Signature (if applicable): Date CC: Antoni Chou MD; Gil Aquino MD Signed DISCHARGE INSTRUCTION Observed: 12/27/2017 Status: F Source: NII 10:16 AM REPOSITORY [facility] Medical Records Department [address] [place] [address] Instructions for Home/Discharge Instructions 12/27/17 1014 MR#: [id number] Acct: [id number] Name: THANG SULTANA V Rep #: [id number] : 1940 77 From: Gil Aquino MD PCP: Antoni Chou MD Status: ADM CIRILO - Discharge Diagnoses Current Active Problems: Current Active and Chronic Problems H/O four vessel coronary artery bypass graft (Chronic) March 2016 Peripheral arterial disease (Chronic) Coronary artery disease (Chronic) Lumbar disc degenerative disease (Chronic) Acute intractable lower back pain (Acute) You will use the following diet at home:: Calorie/Carbohydrate Controlled (specify 1200, 1400, etc) - 1800 ADA diet, Cardiac Your food should be the consistency of: Regular Discharge Activity: May Not Drive, May not drive while taking narcotic pain medications. Weight Bearing Status: Weight bearing as tolerated Call your doctor if you observe: Fever of 101 or Higher, Change in Color, Inability to urinate, Using more than one pad per hour, Shortness of breath, Dizziness, Fainting spells, Swelling in the ankles, Calf discomfort Allergies/Adverse Reactions: Allergies tetanus immune globulin Adverse Reaction (Verified 12/26/17 07:58) Swelling TAPE Adverse Reaction (Uncoded 12/26/17 07:58) Rash Medications to take at Discharge Pantoprazole Sodium [Protonix] 40 mg PO DAILY 10/12/13 Ascorbic Acid [Vitamin C] 500 mg PO DAILY@0800 04/22/15 Aspirin [Aspirin, Baby] 81 mg PO DAILY@0800 04/22/15 Cholestyramine/Aspartame [Cholestyramine Light Powder] 0 gm BID 04/22/15 ALPRAZolam [Xanax] 0.5 mg PO DAILY PRN PRN 12/26/17 Clopidogrel Bisulfate [Plavix] 75 mg PO DAILY 12/26/17 Ezetimibe 10 mg PO DAILY 12/26/17 Furosemide [Lasix] 40 mg PO DAILY 12/26/17 Metoprolol Succinate 100 mg PO 12/26/17 Cheyenne-3 Fatty Acids/Fish Oil [Fish Oil 1,000 mg Capsule] 1 each PO DAILY 12/26/17 Oxycodone Myristate [Xtampza ER] 9 mg PO BID 12/26/17 Potassium Chloride [K-Tab ER] 20 meq PO DAILY 12/26/17 Sacubitril/Valsartan 49-51 mg [Entresto 49 mg-51 mg Tablet] 1 each PO BID 12/26/17 Spironolactone [Aldactone] 12.5 mg PO DAILY 12/26/17 Tizanidine HCl [Zanaflex] 2 mg PO TID 12/26/17 Dexamethasone 1 mg PO UD #21 tab 12/27/17 Senna/Docusate Sodium [Senokot-S] 2 tablet PO BID PRN PRN tablet 12/27/17 The following prescriptions were given: Dexamethasone 1 mg PO UD #21 tab Primary Care Physician: Antoni Chou [Primary Care Provider] - Please follow up with your Primary Care Physician in: in 1- 2 weeks Test Results: Test results from this visit will be discussed in further detail at your follow-up appointment, if applicable. Please Follow Up With: Yane Perez MD When: in 1-2 weeks to schedule for epidural injection/MRI LS spine 12/27/17 1016 <Electronically signed by Gil Aquino MD> Date Gil Aquino MD CC: Yane Perez MD; Antoni Chou MD BASIC METABOLIC Collected: 12/27/2017 Status: F Source: NII PROFILE (BMP) 6:05 AM REPOSITORY TYPE CODE TESTS RESULT OUT OF RANGE REFERENCE UNITS LAB L501.0100 74-106 mg/dL High GLU 160 Result Comment: Fasting Glucose result greater than or equal to 126 mg/dL suggests DIABETES MELLITUS per A.D.A. criteria. Please note revised GLUCOSE reference range effective 2017. LAB L501.1000 7-18 mg/dL Normal BUN 13 LAB L501.1100 0.55-1.02 mg/dL Normal CREAT,SERUM 0.62 Result Comment: The validity of the calculated GFR AND GFRAA in patients over 70 years has not been determined. Clinical correlation is essential. LAB L501.1110 >60 mL/min Normal EST GFR 98 Result Comment: Non- GFR Calc LAB L501.1115 >60 mL/min Normal EST GFR - AA 119 Result Comment: GFR Calc LAB L501.1255 ml/min Normal Estimated CRCL 63.07 LAB L501.1300 10-20 RATIO High BUN/CRE 20.9 LAB L501.2200 8.5-10 mg/dL Normal .1 CA 8.5 LAB L501.5300 136-14 mmol/L Normal 5 NA 139 LAB L501.5600 3.5-5. mmol/L Normal 1 K 4.1 LAB L501.5900 98-107 mmol/L High CL 109 LAB L501.6100 21.0-3 mmol/L Normal 2.0 CO2 22.0 LAB L501.6200 5-15 Normal GAP 8 Performed By: #### L500.2500 #### [facility] [address] [place], [address] EMERGENCY DEPARTMENT Observed: 12/26/2017 Status: F Source: SUMRALL SUMMARY 2:22 PM REPOSITORY [facility] Medical Records Department [address] [place] [address] Emergency Department Summary 12/26/17 0810 MR#: [id number] Acct: [id number] Name: THANG SULTANA V Rep #: [id number] : 1940 77 From: Zaire Fernandes MD PCP: Antoni Chou MD Status: ADM CIRILO - ER Visit Summary Date of Service: 12/26/17 Chief Complaint: Back pain History of Present Illness: The patient is a 77 F presents to the emergency department with increasing back pain. Patient has a history of lower back pain. She had lumbar discectomy and fusion about a year ago. Her postoperative course was complicated with [place] and pulmonary embolus. She had to have four-vessel CABG. She states that after surgery, her back pain was better, but obviously she had other health conditions. Over the past 3 weeks, her pain is been worsening. She was having radiation down her left leg. She did see Dr. Perez in the office. She did receive an injection in her low back, sounds like in the SI joint because she is on Plavix and cannot have epidural injection. She states it did help the burning down her leg, but she still had persistent pain in her back. She basically lays flat all day. She cannot stand and walk any distance. Family states they have been basically having to do 24-hour care for her because of her pain. She is been taking oral medications with very little improvement. She has had no abdominal pain. She denies any problems of bowel or bladder. Physical Examination: Afebrile, vitals unremarkable. Well- appearing female no acute distress. Head is normocephalic, atraumatic. Pupil's equal round reactive, extraocular muscles intact. Neck supple. Heart regular rate and rhythm. Lungs clear, chest nontender. Abdomen soft, nontender, nondistended. No pulsatile mass. Patient has paraspinal tenderness in the lumbar area, but no bony tenderness. Straight leg raise is negative bilaterally. 2+ symmetric lower extremity pulses. 2+ reflexes. No clonus. No weakness of dorsiflexion, plantar flexion, or extensor hallucis longus bilaterally. Test Results: [] Emergency Department Course and Treatment: The patient presents to the emergency department with worsening low back pain. It is to the point where she is basically unable to function. She has been bedbound for almost 3 weeks. She has followed with Dr. Perez and even had injections, but is still not improving. IV was established patient was given fluids, morphine, and Zofran. She did have significant improvement of her pain but then had return of her spasm. Labs do show some mild elevation of her BUN and creatinine, but again I feel that this is more likely because she is basically just been bedbound and unable to really eat and take care of herself. I did obtain a CT of her abdomen and pelvis given her history of vascular disease. There is no evidence of AAA or other dangerous intra-abdominal process. At this time, given the patient's advanced age, inability to function, continued pain despite outpatient management I do feel that she is going to require admission for pain control, physical therapy, and potential MRI. The patient was discussed with the hospitalist and will be admitted. Treatment Plan: [] Disposition: Admission Impression: 1. Intractable back pain with inability to ambulate This note was generated with [employer] Money[employer] software. It may contain incorrect words, spelling, and punctuation that were not noted in review of the chart prior to signing ED Disposition - Plan for ED Patient: Chief Complaint: Back Referrals: Antoni Chou [Primary Care Provider] - What to do if you have Problems For any increased pain, shortness of breath, bleeding, nausea or vomiting, chest pain, or any unexpected problems, contact your Primary Care Provider. Call [facility] ([phone]) or report to the closest Emergency Room. Call 911 if necessary. 12/26/17 1422 <Electronically signed by Zaire Fernandes MD> Date Zaire Fernandes MD Cosigner Signature (If Indicated): Date CC: Antoni Chou MD HISTORY AND PHYSICAL Observed: 12/26/2017 Status: F Source: [place] EXAM 1:42 PM REPOSITORY [facility] Medical Records Department [facility] [place] [address] History and Physical 12/26/17 1150 MR#: [id number] Acct: [id number] Name: THANG SULTANA V Rep #: [id number] : 1940 77 From: Gil Aquino MD PCP: Antoni Chou MD Status: ADM CIRILO Y Location: [facility] [id number] ADDENDUM by Gil Aquino MD on 12/26/17 at 1342 Code Visit Correction chief complaint: Lower back pain for last 3 weeks. 12/26/17 1342 <Electronically signed by Gil Aquino MD> Date Gil Aquino MD cc: Antoni Chou MD; Gil Aquino MD * Signed Problem List (1) H/O four vessel coronary artery bypass graft Status: Chronic Comment: March 2016 (2) Peripheral arterial disease Status: Chronic (3) Coronary artery disease Status: Chronic (4) Lumbar disc degenerative disease Status: Chronic (5) medical management Status: Chronic (6) Asthma Status: Chronic (7) Hypertension Status: Chronic (8) Osteoarthritis Status: Chronic (9) Type 2 diabetes mellitus Status: Chronic (10) Acute intractable lower back pain Status: Acute History of Present Illness Date of Admission: 12/26/17 Chief Complaint: Severe lower back pain for 3 days The patient is a 77 year old F with multiple comorbidities including coronary artery disease status post four-vessel CABG, lumbar degenerative disc disease status post discectomy and fusion about a year ago, postoperative course complicated by [place] and PE came to ER for progressive worsening of back pain for last [address]. [address] Perez and she had a pain shot in SI joint 2 times, last one probably about a month or 2 months ago. She further says she cannot have epidural injection as she is on Plavix. She also has peripheral arterial disease of lower extremities She denies acute neurological symptoms of cauda equina syndrome including new weakness, numbness or tingling or saddle anesthesia/although she has chronic incontinence and chronic tingling of toes. In the ED, she had abdomen pelvis CT which showed diffuse atherosclerotic calcification of abdominal aorta without aneurysm. Degenerative changes of lumbar spine although there was lot of artifact secondary to bilateral hip replacement. Previous lumbar spine x-ray in December 2017 shows minimal progression of mild degenerative changes of the lumbar spine with facet hypertrophy of L4-L5 and L5-S1 unchanged ] Past Medical History Past Medical History (Chronic Problems): Chronic Problems H/O four vessel coronary artery bypass graft (Chronic) March 2016 Peripheral arterial disease (Chronic) Coronary artery disease (Chronic) Lumbar disc degenerative disease (Chronic) Asthma (Chronic) medical management (Chronic) Osteoarthritis (Chronic) Hypertension (Chronic) Type 2 diabetes mellitus (Chronic) Allergies tetanus immune globulin Adverse Reaction (Verified 12/26/17 07:58) Swelling TAPE Adverse Reaction (Uncoded 12/26/17 07:58) Rash Home Medications: Ambulatory Orders Medication Instructions Recorded Metoprolol Tartrate 100 mg PO BID 10/12/13 Pantoprazole Sodium [Protonix] 40 mg PO DAILY 10/12/13 Surgical History: cataract, cholecystectomy, hysterectomy, - - Tubal ligation, 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 Psychiatric History: No pertinent psych hx 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 Smoking Status: Former smoker - *Family History Maternal History Items: No pertinent history Paternal History Items: No pertinent history Sibling History Items: No pertinent history Review of Systems Constitutional: Denies: Chills, Fever, Weight Change HEENT: Denies: Head Aches, Sinus Congestion, Sinus Drainage Cardiovascular: Denies: Chest Pain, Palpitations Respiratory: Denies: Cough, Shortness of breath at rest, Sputum production Gastrointestinal: Denies: Abdominal Pain, Nausea, Vomiting Genitourinary: Denies: Dysuria Musculoskeletal: Reports: Back Pain, Joint Pain, Joint stiffness, Joint Tenderness, Neck Pain Skin: Denies: Rash, Wounds Neurological: Reports: Balance problems, Tingling - Chronic tingling for long time. Denies: Focal weakness, Numbness Psychiatric: Denies: Anxiety, Depression, Homicidal Ideations, Suicidal Ideations Hematologic/ Lymphatic: Denies: Easy Bruising, Easy Bleeding VTE Information - Inpt Only VTE Present on Admission: No VTE Mechan Device Prophylaxis: None VTE Pharm Prophylaxis ordered?: Yes Patient Problems: Active and Suspected Problems Acute intractable lower back pain (Acute) - Physical Exam General: Alert, Oriented x3, Cooperative HEENT: Atraumatic, PERRLA, EOMI, Normocephalic Oral: Moist Mucosa Neck: Supple, No JVD, Negative Carotid Bruits Lungs: Clear to auscultation, No rhonchi, No wheeze, No rales, Diminished - Bilateral lung bases Cardiovascular: Regular rate, Regular Rhythm, Normal S1, Normal S2, No murmurs, - Abdomen: Bowel Sounds Present, Soft, Non Tender, Non-Distended Extremities: Capillary Refill Less than 3 Seconds, Diminished Peripheral Pulses - Diminished posterior tibialis and dorsalis pedis bilaterally more on left leg, Edema - Mild pedal edema Skin: No rashes, No breakdown Musculoskeletal: Arthritic Changes, Muscle Wasting, Tenderness - At left SI joint and lumbar and sacrococcygeal region Lymphatic: No Cervical, Supraclavicular, or Inguinal Adenopathy Neurological: Cranial nerves II-XII grossly intact, Deep Tendon Reflexes 2+/4 and Symmetrical, Neuro grossly intact Psych/Mental Status: Normal Affect, Appropriate Vital Signs Temp Pulse Resp BP Pulse Ox 96.3 F L 90 16 148/79 H 97 12/26/17 07:56 12/26/17 10:21 12/26/17 10:21 12/26/17 10:21 12/26/17 10:21 Weight: 187 lb Body Mass Index (BMI) 40.4 Finger Stick Blood Glucose 112 Laboratory Tests Past 24 Hrs Assessment/Plan All Active Problems Acute intractable lower back pain (Acute) The patient is a 77 year old F with multiple comorbidities including coronary artery disease status post four-vessel CABG, lumbar degenerative disc disease status post discectomy and fusion about a year ago, postoperative course complicated by [place] and PE came to ER for progressive worsening of back pain for last [address] Perez and she had a pain shot in SI joint 2 times, last one probably about a month or 2 months ago. She further says she cannot have epidural injection as she is on Plavix. She also has peripheral arterial disease of lower extremities She denies acute neurological symptoms of cauda equina syndrome including new weakness, numbness or tingling or saddle anesthesia/although she has chronic incontinence and chronic tingling of toes. In the ED, she had abdomen pelvis CT which showed diffuse atherosclerotic calcification of abdominal aorta without aneurysm. Degenerative changes of lumbar spine although there was lot of artifact secondary to bilateral hip replacement. Previous lumbar spine x-ray in December 2017 shows minimal progression of mild degenerative changes of the lumbar spine with facet hypertrophy of L4-L5 and L5-S1 unchanged 1. Acute on chronic back pain secondary to lumbosacral and SI degenerative arthritis: Patient is being admitted on the regular medical floor. Patient had 4 mg IV morphine and 0.5 mg IV Ativan in ED with no relief. Started on oxycodone IR and oxycodone CR with IV morphine for breakthrough pain. On Zanaflex. Started on Decadron 4 mg twice daily. Pain management consult. If pain is better, patient can have MRI lumbar sacral spine but for now there is no urgency and patient cannot lay back straight 2. Cardiac conditions: Coronary artery status post [place], four- vessel CABG, PE, peripheral arterial disease: Continue aspirin and Plavix. Continue cardiac medications including metoprolol, Entresto and Lasix. Patient follows Dr. Moon. 4. Diabetes mellitus type 2: Accu-Chek before meals and at bedtime and cover with NovoLog sliding scale. 5. Multiple chronic comorbidities including hypertension, chronic degenerative joint disease, asthma: Home medication reconciliation done. DVT prophylaxis: On Lovenox 40 mg subcut daily. Code Visit OBSV Deepthi AND M: [id number] Initial observation care L3 12/26/17 1234 <Electronically signed by Gil Aquino MD> Date Gil Aquino MD Cosigner Signature: Date (if applicable) CC: Antoni Chou MD; Gil Aquino MD Signed URINALYSIS, COMPLETE Collected: 12/26/2017 Status: F Source: [place] 10:20 AM REPOSITORY Order Comment: How was Urine Obtained? CLEAN CATCH TYPE CODE TESTS RESULT OUT OF RANGE REFERENCE UNITS LAB L400.3000 Yellow COLOR Normal Yellow LAB L400.3050 Clear Normal CLARITY Sl. Cloudy LAB L400.3200 Normal mg/dl Normal GLUCOSE, UR Normal LAB L400.3300 Negative mg/dL Normal BILIRUBIN URINE Negative LAB L400.3400 Negative mg/dl Normal KETONE UR Negative LAB L400.3465 1.002-1.030 Normal SP.GR. DIPSTX 1.010 LAB L400.3550 5.0 - 8.0 pH UR Normal 5.0 LAB L400.3600 Negative mg/dl High PROT 15 DIPSTX LAB L400.3700 Normal mg/dl Normal UROBILI Normal LAB L400.3750 Negative Normal NITRITE UR Negative LAB L400.3780 Negative /ul High 10 OCCULT BLOOD-UR LAB L400.3800 Negative /ul High LEUK 25 ESTERASE LAB L400.4050 0-5 /hpf WBC Normal 0-5 SEEN LAB L400.4100 0-5 /hpf Normal RBC-UA 0-5 SEEN LAB L400.4150 5-10 /hpf SQUAM Normal EPI 0-5 SEEN LAB L400.4300 None Seen /hpf 0 Normal BACTERIA SEEN LAB L400.4350 <or=2+ /hpf 0 Normal MUCUS, URINE SEEN Performed By: #### L400.0001 #### [facility] [address] [place], [place], [id number] CBC W/DIFF, AUTOMATED Collected: 12/26/2017 Status: F Source: [place] 8:25 AM REPOSITORY TYPE CODE TESTS RESULT OUT OF RANGE REFERENCE UNITS LAB L100.1000 4.4-11.0 K/mm3 Normal WBC 7.0 LAB L100.1200 4.2-5.4 M/mm3 Normal RBC 4.81 LAB L100.1300 12.0-15.0 g/dl Normal HGB 13.8 LAB L100.1400 37-47 % Normal HCT 42.8 LAB L100.1500 81-99 fL Normal MCV 89.0 LAB L100.1600 27.0-32.0 pg Normal MCH 28.7 LAB L100.1700 32-36 g/gl Normal MCHC 32.2 LAB L100.1810 11.6-14.6 % High RDW CV 15.2 LAB L100.1820 35.1-43.9 fl High RDW SD 49.7 LAB L100.1900 150-450 K/mm3 Normal PLT 182 LAB L100.2000 6.2-12.0 fl Normal MPV 11.5 LAB L100.2100 47-70 % High NEUT% 72.0 LAB L100.2200 19-41 % Normal LY% 20.5 LAB L100.2300 0-10 % Normal MONO% 6.0 LAB L100.2400 0-5 % Normal EO% 1.1 LAB L100.2500 0-1 % Normal BASO% 0.3 LAB L100.2550 0.0-0.9 % Normal IM GRAN % 0.100 Result Comment: IG% - Immature Granulocytes (promyelocytes, myelocytes and metamyelocytes) > 1% indicates that a LEFT SHIFT is Present. LAB L100.2620 2.0-7.7 X10 3/uL Normal Absolute Neut 5.1 LAB L100.2720 0.83-4.51 X10 3/ul Normal Absolute Lymph 1.44 Performed By: #### L100.0100 #### [facility] [address] [place], [place], [address] COMPREHENSIVE METABOLIC Collected: 12/26/2017 Status: F Source: [place] 8:25 AM REPOSITORY TYPE CODE TESTS RESULT OUT OF RANGE REFERENCE UNITS LAB L501.0100 74-106 mg/dL High GLU 128 Result Comment: Fasting Glucose result greater than or equal to 126 mg/dL suggests DIABETES MELLITUS per A.D.A. criteria. Please note revised GLUCOSE reference range effective 2017. LAB L501.1000 7-18 mg/dL High BUN 20 LAB L501.1100 0.55-1.02 mg/dL High CREAT,SERUM 1.05 Result Comment: The validity of the calculated GFR AND GFRAA in patients over 70 years has not been determined. Clinical correlation is essential. LAB L501.1110 >60 mL/min Low EST GFR 54 Result Comment: Non- GFR Calc LAB L501.1115 >60 mL/min Normal EST GFR - AA 65 Result Comment: GFR Calc LAB L501.1255 ml/min Normal Estimated CRCL 57.83 LAB L501.1300 10-20 RATIO Normal BUN/CRE 19.0 LAB L501.1500 6.4-8. g/dL Normal 2 T PROT 6.5 LAB L501.1800 3.2-5. g/dL Low 0 ALB 3.1 LAB L501.1950 2.2-4. g/dL Normal 2 GLOB 3.4 LAB L501.2000 0.9-2. RATIO Normal 4 A/G 0.9 LAB L501.2200 8.5-10 mg/dL Normal .1 CA 8.8 LAB L501.4100 15-37 U/L Normal AST 17 Result Comment: Slight Hemolysis, Result may be falsely increased. LAB L501.4305 45-117 U/L Normal ALK P 72 LAB L501.4405 13-56 U/L Normal ALT 28 LAB L501.4600 0.20-1.00 mg/dL Normal T BILI 0.40 LAB L501.5300 136-145 mmol/L Normal NA 144 LAB L501.5600 3.5-5.1 mmol/L Normal K 4.2 Result Comment: Slight Hemolysis, Result may be falsely increased. LAB L501.5900 98-107 mmol/L High CL 109 LAB L501.6100 21.0-32.0 mmol/L Low CO2 19.0 LAB L501.6200 5-15 High GAP 16 Performed By: #### L500.4050 #### [facility] [address] [place], [address] ABDOMEN/PELVIS W IV CONT Observed: 12/26/2017 Status: F Source: N[place] ONLY 8:08 AM REPOSITORY [facility] Imaging Services [address] [place] [address] Abdomen/Pelvis W IV Cont ONLY MR#: [id number] Acct: [id number] Name: THANG SULTANA V Rep #: [id number] : 1940 F 77 From: Nas Valdovinos MD PCP: Antoni Chou MD Status: REG ER Study: Abdomen/Pelvis W IV Cont ONLY Date of Exam: 12/26/17 Exam# [id number] Ordering Dr: Ziare Fernandes MD STUDY: CT ABDOMEN AND PELVIS WITHOUT CONTRAST REASON FOR EXAM: Female, 77 years old. Chronic low back pain with radiation into the left lower extremity. RADIATION DOSAGE (If Supplied By Facility): CTDIvol = ( 23.24 ) mGy, DLP = ( 1569.54 ) mGycm TECHNIQUE: Transaxial images were obtained from the dome of the diaphragm to the symphysis pubis without oral contrast, and without intravenous contrast. Sagittal and coronal images were reconstructed. Individualized dose optimization techniques were used for this CT. COMPARISON: None. FINDINGS: Mild degree of increased markings at the lung bases suggestive of either atelectasis and/or scarring. The visualized portions of the heart are within normal limits. Normal liver. The patient is status post cholecystectomy. Normal spleen. Normal pancreas. Normal bilateral adrenal glands. Normal right kidney. Normal left kidney. Normal visualized stomach. Normal small intestine. There are multiple colonic diverticula consistent with diverticulosis. The appendix is visualized and appears normal. There is diffuse atherosclerotic calcification of the abdominal aorta, without a demonstrated aneurysm. Normal inferior vena cava. There is borderline retroperitoneal lymphadenopathy with enlarged nodes no greater than 10mm in the short axis diameter. Normal urinary bladder. There is absence of the uterus consistent with a prior hysterectomy. Normal abdominal wall. There are degenerative changes of the visualized lumbar spine. The patient is status post bilateral total hip replacement. This causes beam hardening artifact and limits visualization of the pelvis. CT/Abdomen/Pelvis W IV Cont ONLY IMPRESSION: Mild increased markings at the lung bases suggestive of scarring. Sigmoid diverticulosis. Status post bilateral total hip replacement. Electronically Signed: Nas Valdovinos MD at 9:41 EST Tel [phone], Service support , CC: Antoni Chou MD; Zaire Fernandes MD Information Clerk Brokerage: Signed LUMBAR SPINE 2 OR 3 Observed: 12/15/2017 Status: F Source: [place] VIEWS 6:24 PM REPOSITORY [facility] Imaging Services [address] [place] [address] Lumbar Spine 2 or 3 Views MR#: [id number] Acct: [id number] Name: THANG SULTANA V Rep #: [id number] : 1940 F 77 From: Kye Smith PCP: Antoni Chou MD Status: REG CLI Study: Lumbar Spine 2 or 3 Views Date of Exam: 12/15/17 Exam# [id number] Ordering Dr: Yane Perez MD STUDY: X-RAY - LUMBAR SPINE REASON FOR EXAM: Female, 77 years old. Back pain. History of lower back surgery. TECHNIQUE: 3 view(s) of the lumbar spine were obtained. COMPARISON: August 24, 2013. FINDINGS: Normal lumbar lordosis. There is no substantial scoliosis. There is a normal alignment of the vertebrae. Vertebral bodies are normal. There is minimal progression of disc space narrowing and endplate degenerative changes since the prior study. Facet hypertrophy at L4-5 and L5-S1 unchanged. The soft tissue structures are unremarkable. There are now total bilateral hip arthroplasties in normal alignment. RAD/Lumbar Spine 2 or 3 Views IMPRESSION: Progression of mild degenerative changes of the lumbar spine. Electronically Signed: Kye Smith MD at 8:13 EST , Service support , CC: Yane Perez MD; Antoni Chou MD Information Clerk Brokerage: Signed THORACIC SPINE 3 Observed: 12/15/2017 Status: F Source: [place] VIEWS 6:24 PM REPOSITORY [facility] Imaging Services [address] [place] [address] Thoracic Spine 3 Views MR#: [id number] Acct: [id number] Name: THANG SULTANA V Rep #: [id number] : 1940 F 77 From: Kye Smith PCP: Antoni Chou MD Status: REG CLI Study: Thoracic Spine 3 Views Date of Exam: 12/15/17 Exam# [id number] Ordering Dr: Yane Perez MD STUDY: X-RAY - THORACIC SPINE REASON FOR EXAM: Female, 77 years old. Back pain. History of back surgery. TECHNIQUE: 2 view(s) of the thoracic spine were obtained. COMPARISON: November 29, 2016. FINDINGS: Normal kyphosis of the thoracic spine. There is no substantial scoliosis. No significant disc space narrowing. Small marginal osteophytes at multiple levels unchanged. There is a 1.2 cm round sclerotic density within a mid thoracic vertebral body unchanged probably representing an incidental hemangioma. No fracture identified. Sternal wires are present. The soft tissue structures are unremarkable. RAD/Thoracic Spine 3 Views IMPRESSION: Mild multilevel degenerative changes of the thoracic spine. Osseous hemangioma unchanged. Electronically Signed: Kye Smith MD at 8:17 EST , Service support , CC: Yane Perez MD; Antoni Chou MD Information Clerk Brokerage: Signed BMP WITH EGFR Collected: 09/29/2017 Status: F Source: [place] 2:18 PM [facility] REPOSITORY TYPE CODE TESTS RESULT OUT OF RANGE REFERENCE UNITS LAB BMP with eGFR(LOINC) BMP with eGFR Result Comment: BASIC METABOLIC PANEL LAB SODIUM(LOINC) 136 - 145 mmol/l SODIUM 138 LAB POTASSIUM(LOINC) 3.5 - 5.1 mmol/L POTASSIUM 3.7 LAB CHLORIDE(LOINC) 98 - 107 mmol/L CHLORIDE 103 LAB CO2(LOINC) 21.0 - mmol/L 31.0 CO2 23.6 LAB GLUCOSE(LOINC) 74 - 106 mg/dl GLUCOSE 105 LAB BUN(LOINC) 6 - 20 mg/dl BUN 16 LAB CREATININE(LOINC) 0.6 - 1.2 mg/dl CREATININE 1.0 LAB CALCIUM(LOINC) 8.6 - mg/dl 10.2 CALCIUM 9.2 LAB ANION GAP(LOINC) 10 - 20 mmol/L ANION GAP 15 LAB AGE(LOINC) years AGE 77 LAB eGFR(LOINC) 60 - 999 ML/MINUTE eGFR Low 54 LAB eGFR(AA)(LOINC) 60 - 999 ML/MINUTE eGFR(AA) >60 Result Comment: ACCORDING TO THE NATIONAL KIDNEY DISEASE EDUCATION PROGRAM(NKDE), A NORMAL eGFR IS A VALUE GREATER THAN OR EQUAL TO 60 ML/MIN/1.73 SQ METERS. CHRONIC KIDNEY DISEASE: <60mL/MIN/1.73 SQ METERS KIDNEY FAILURE: <15mL/MIN/1.73 SQ METERS THIS TEST SHOULD ONLY BE USED FOR PATIENTS 18 YEARS OF AGE AND OLDER. Performed By: #### [id number] #### [facility],[address] [place] [address] BMP WITH EGFR Collected: 09/09/2017 Status: F Source: [place] 1:33 PM [facility] REPOSITORY TYPE CODE TESTS RESULT OUT OF RANGE REFERENCE UNITS LAB BMP with eGFR(LOINC) BMP with eGFR Result Comment: BASIC METABOLIC PANEL LAB SODIUM(LOINC) 136 - 145 mmol/l SODIUM 137 LAB POTASSIUM(LOINC) 3.5 - 5.1 mmol/L POTASSIUM 4.0 LAB CHLORIDE(LOINC) 98 - 107 mmol/L CHLORIDE 104 LAB CO2(LOINC) 21.0 - mmol/L 31.0 CO2 22.0 LAB GLUCOSE(LOINC) 74 - 106 mg/dl GLUCOSE 93 LAB BUN(LOINC) 6 - 20 mg/dl BUN 9 LAB CREATININE(LOINC) 0.6 - 1.2 mg/dl CREATININE 0.8 LAB CALCIUM(LOINC) 8.6 - mg/dl 10.2 CALCIUM 9.4 LAB ANION GAP(LOINC) 10 - 20 mmol/L ANION GAP 15 LAB AGE(LOINC) years AGE 77 LAB eGFR(LOINC) 60 - 999 ML/MINUTE eGFR >60 LAB eGFR(AA)(LOINC) 60 - 999 ML/MINUTE eGFR(AA) >60 Result Comment: ACCORDING TO THE NATIONAL KIDNEY DISEASE EDUCATION PROGRAM(NKDE), A NORMAL eGFR IS A VALUE GREATER THAN OR EQUAL TO 60 ML/MIN/1.73 SQ METERS. CHRONIC KIDNEY DISEASE: <60mL/MIN/1.73 SQ METERS KIDNEY FAILURE: <15mL/MIN/1.73 SQ METERS THIS TEST SHOULD ONLY BE USED FOR PATIENTS 18 YEARS OF AGE AND OLDER. Performed By: #### [id number] #### [facility],[address] [place] [address] URINE DRUG SCREEN Collected: 08/29/2017 Status: F [facility] AM REPOSITORY Order Comment: List of Drugs Taken or Suspected? UNK TYPE CODE TESTS RESULT OUT OF RANGE REFERENCE UNITS LAB L505.0075 TO BE Normal CONFIRMED Result Comment: CONFIRMATORY TESTING FOR ALL POSITIVE URINE DRUG SCREEN RESULTS WILL ONLY BE SENT OUT UPON PHYSICIAN ORDER. VISTA Urine Drug Screen methods provide only preliminary analytical test results. A more specific alternate chemical method must be used in order to obtain a confirmed analytical result. Gas chromatography/mass spectrometery (GC/MS) is the preferred confirmatory method. Clinical consideration and professional judgement should be applied to any drug of abuse test result, particularly when preliminary positive results are used. URINE TCA TESTING MUST BE ORDERED SEPARATELY. USE TEST MNEMONIC: [facility] LAB L505.5005 VISTA UDS PH 5 Normal LAB L505.5015 <1000 ng/mL AMPHETAMINES Normal NEGATIVE LAB L505.5025 < 200 ng/mL BARBITIURATES Normal NEGATIVE LAB L505.5035 < 200 ng/mL BENZODIAZIPINE Normal NEGATIVE LAB L505.5045 < 300 ng/mL COCAINE Normal NEGATIVE LAB L505.5055 < 500 ng/mL ECSTACY Normal NEGATIVE LAB L505.5065 < 300 ng/mL METHADONE Normal NEGATIVE LAB L505.5075 < 300 ng/mL OPIATES Normal NEGATIVE LAB L505.5085 < 25 ng/mL PCP Normal NEGATIVE LAB L505.5095 < 50 ng/mL THC Normal NEGATIVE Performed By: #### L505.5000 #### [facility] [address] [place], [address] MISCELLANEOUS LAB Collected: 08/29/2017 Status: F Source: NII PROCEDURE 9:41 AM REPOSITORY Order Comment: Test(s) Ordered: URINE TOXICOLOGY [id number] RUN LOWEST TEST TYPE CODE TESTS RESULT OUT OF RANGE REFERENCE UNITS LAB L801.1541 Normal [facility] LAB TEST Result Comment: TEST RESULT UNITS REF INTERVAL [id number] 6+Oxycodone-Bund Amphetamines, Urine Negative ng/mL Cxbxwt=9549 Amphetamine test includes Amphetamine and Methamphetamine. Barbiturate Negative ng/mL Ekphct=649 Benzodiazepines Negative ng/mL Xtkckl=829 Cannabinoids Negative ng/mL Cutoff=20 Cocaine (Metabolite) Negative ng/mL Vecdvz=423 Opiates Negative ng/mL Pzkxlr=940 Opiate test includes Codeine, Morphine, Hydromorphone, Hydrocodone. Oxycodone/Oxymorphone, Urine Negative ng/mL Jzaxhb=466 Test includes Oxycodone and Oxymorphone TESTING PERFORMED AT [facility]. ORIGINAL REPORT ON FILE IN LAB CONTAINS ADDITIONAL TEST SITE INFORMATION. Performed By: #### L801.1541 #### [facility] [address] [place], [address] ABD AORTIC/IVC DUPLEX Observed: 08/24/2017 Status: F Source: N[place] SCAN 11:21 AM REPOSITORY [facility] Cardiovascular Services [address] [facility] [place] [address] Abd Aortic/IVC Duplex scan 08/22/17 0900 MR#: [id number] Acct: [id number] Name: THANG SULTANA Rep #: [id number] : 1940 77 From: Ignacio Moon MD Attending Dr: Ignacio Moon MD Status: REG CLI Ordering Dr: Ignacio Moon MD Date: 08/22/17 Location: [facility] Sex: F C Admitted: Reason For Study: Atherosclerosis Aorta Measurements Aorta Doppler Measurements Proximal aorta measures1.9 x 1.9cm. in cross- Peak systolic flow velocities within the proximal sectional axis. aorta measure 62.9 cm/sec. Proximal aorta measures1.8cm. in longitudinal Peak systolic flow velocities within the mid axis. aorta measure 50.2 cm/sec. Mid aorta measures1.3 x 1.3cm. in cross-sectionalPeak systolic flow velocities within the distal axis. aorta measure 61.1 cm/sec. Mid aorta measures1.4cm. in longitudinal axis. Distal aorta measures1.2 x 1.3cm. in cross- sectional axis. Distal aorta measures1.2cm. in longitudinal axis. Left Iliac Artery Left iliac artery measures .95 cm. in the longitudinal axis. Left iliac artery measures .98 x .91 cm. in the cross-sectional axis. Peak systolic velocity in the left iliac artery measures 188.0 cm/sec. Right Iliac Artery Right iliac artery measures .88 cm. in the longitudinal axis. Right iliac artery measures .88 x .93 cm. in the cross-sectional axis. Peak systolic velocity in the right iliac artery measures 74.4 cm/sec. Procedure Aorta IVC Iliac vasculature or bypass grafts 71074. Exam performed in department. Interpretation Summary 1. No aortoiliac aneurysm or stenosis. Ordering Physician: Ignacio Moon Referring Physician: Ignacio Moon Performed By: Sandra Elliott RVT 08/24/17 1120 Date Ignacio Moon MD CC: Ignacio Moon MD; Antoni [facility] Date Dictated: 08/22/17 0900 Date Transcribed: 08/24/17 1120 Information Clerk Brokerage: Signed ARTERIAL DUPLEX US Observed: 08/24/2017 Status: F [facility] 11:20 AM REPOSITORY [facility] Cardiovascular Services [address] [place], [place] [address] [address] Art Duplex US Bilat Lower Ext 08/22/17 0913 MR#: [id number] Acct: [id number] Name: THANG SULTANA HELEN Rep #: [id number] : 1940 77 From: Ignacio Moon MD Attending Dr: Ignacio Moon MD Status: REG CLI Ordering Dr: Ignacio Moon MD Date: 08/22/17 Location: [facility] Sex: F C Admitted: Reason For Study: Atherosclerosis with claudication Right Velocities Left Velocities Common Iliac Artery, dist = 90.1 cm./sec. Ext Iliac Artery, dist = 73.5 cm./sec. Common Femoral Artery, prox = 101.0 cm./sec. Common Femoral Artery, prox = 88.0 cm./sec. Supf Femoral Artery, prox = 185.0 cm./sec. Supf. Femoral Artery, prox = 191.0 cm./sec. Absent color flow and doppler signal mid SFA. Supf. Femoral Artery, mid = 164.0 cm./sec. Supf Femoral Artery, dist. = 63.9 cm./sec. Supf. Femoral Artery, dist = 107.0 cm./sec. Profunda Femoral Artery = 136.0 cm./sec. Profunda Femoral Artery = 118.0 cm./sec. Popliteal Artery, prox. = 52.2 cm./sec. Popliteal Artery, proximal, = 47.5 cm./sec. Popliteal Artery, mid = 23.1 cm./sec. Popliteal Artery, mid = 79.7 cm./sec. Popliteal Artery, dist = 36.7 cm./sec. Popliteal Artery, distal = 28.1 cm./sec. Post. Tibial Artery, prox = 34.3 cm./sec. Post. Tibial Artery, prox = 25.2 cm./sec. Post. Tibial Artery, mid = 21.9 cm./sec. Post Tibial Artery, mid = 26.9 cm./sec. Post. Tibial Artery, dist = 32.1 cm./sec. Post Tibial Artery, dist. = 68.6 cm./sec. Peroneal Artery,dist = 12.4 cm./sec. Peroneal Artery, prox = 19.5 cm./sec. Ant. Tibial Artery, prox = 25.9 cm./sec. Peroneal Artery, mid = 24.3 cm./sec. Ant. Tibial Artery, mid = 23.1 cm./sec. Peroneal Artery,dist. = 26.4 cm./sec. Ant. Tibial Artery, dist = 21.9 cm./sec. Ant.Tibial Artery, prox = 42.6 cm./sec. Ant Tibial Artery, mid = 19.8 cm./sec. Ant. Tibial Artery, distal = 26.9 cm./sec. Procedure Exam performed in department. Interpretation Summary 1. right mid SFA occluded and collateral flow noted. 2. Left leg with no appreciable stenosis. Ordering Physician: Ignacio Moon Referring Physician: Ignacio Moon Performed By: Sandra Elliott RVT 08/24/17 1120 Date Ignacio Moon MD CC: Ignacio Moon MD; Antoni Chou Date Dictated: 08/22/17 0913 Date Transcribed: 08/24/17 1120 Information Clerk Brokerage: Signed LOWER EXT ARTERIAL Observed: 08/24/2017 Status: F Source: [facility] 11:01 AM [facility] Cardiovascular Services [address] [place] [address] 08/24/17 1059 MR#: [id number] Acct: [id number] Name: THANG SULTANA Rep #: [id number] : 1940 77 From: Ignacio Moon MD Attending Dr: Ignacio Moon MD Status: REG CLI Ordering Dr: Date: 08/24/17 Location: [facility] Sex: F C Admitted: Arterial Study - Arterial Study Arterial Study: Date of scan 08/22/[address] Moon History: Patient with arterial claudication. Interpretation: Right lower extremity appears to have pulsatile flow noted down at the ankle with a biphasic flow the posterior tibial and NICOLE 0.67 cluster of monophasic flow at the dorsalis pedis with an NICOLE 0.54. Left lower extremity with the biphasic flow the posterior tibial with an NICOLE 0.72 more of a monophasic and of the dorsalis pedis with an NICOLE 0.51. Impression: 1. Right lower extremity moderate arterial occlusive disease with an NICOLE 0.67 and biphasic flow. 2. Left lower extremity with moderate arterial occlusive disease with an NICOLE 0.72 and biphasic flow. 08/24/17 1101 <Electronically signed by Ignacio Moon MD> Date Ignacio Moon MD CC: Ignacio Moon MD; Antoni Chou Date Dictated: 08/24/17 1059 Date Transcribed: 08/24/17 1059 Information Clerk Brokerage: BAB Signed CV ARTERIAL U OR L Observed: 06/24/2017 Status: F Source: [facility] 2:[address] [address] Patient: THANG SULTANA V. Phone#: : 1940 Age: 77 Gender: F Pt. Type: Out Account: [id number] Location: 011 Ordering: ANTONI CHOU Exam Date: 06/24/2017/13:24 Family Phys: Charge Code: [id number] Physician: Sanborn Order #: [id number] DLP Dose#: PROCEDURE: ARTERIAL BILAT LOWER MULTIPLE PHYSIOLOGY COMPARISON: None. INDICATIONS: Leg pain TECHNIQUE: Resting continuous-wave Doppler recordings were obtained from the femoral, popliteal, tibial and dorsalis pedis arteries. Resting volume pulse recordings and segmental limb pressures were obtained at the upper thigh, lower thigh, upper calf and ankle levels. CONTINUOUS-WAVE DOPPLER RIGHT LEFT Femoral Artery Triphasic Triphasic Popliteal Artery Biphasic Biphasic Posterior Tibial Artery Biphasic Biphasic Dorsalis Pedis Monophasic Monophasic VOLUME PULSE RECORDINGS RIGHT LEFT Upper Thigh Normal Normal Lower Thigh Mildly abnormal Mildly abnormal Calf Mildly abnormal Mildly abnormal Ankle Moderately abnormal Moderately abnormal Toe (PPG) Abnormal Abnormal SEGMENTAL SYSTOLIC LIMB PRESSURES RIGHT (mmHg) LEFT (mmHg) Brachial: 129 125 Upper thigh: 130 95 Calf: 83 89 Ankle (DPA): 69 64 Ankle (ENGINEERING MECHANIC): 74 74 Continued Report - Page 2 of 2 Patient: THANG SULTANA V. Phone#: : 1940 Age: 77 Gender: F Pt. Type: Out Account: [id number] Location: 011 Ordering: ANTONI CHOU Exam Date: 06/24/2017/13:24 Family Phys: Charge Code: [id number] Physician: Sanborn Order #: [id number] DLP Dose#: Toe: 49 43 ANKLE BRACHIAL INDEX RIGHT LEFT .57 .57 Veterinarian Helper: JUAN PABLO FINDINGS: Right Lower Extremity: The right lower extremity demonstrates normal triphasic Doppler signals at the common femoral, proximal femoral arteries. Biphasic Doppler signal is present at the popliteal, posterior tibial arteries. Monophasic signal is present at the dorsalis pedis artery. Volume pulse recordings demonstrated reduced amplitude at all levels . There are no significant pressure differentials in the segmental limb pressures when comparing side to side or from level to level. PPG waveform from the great digit was reduced. Segmental brachial indices demonstrates disease in the moderate range at the calf and ankle and severely reduced range at the digit level. NICOLE is 0.57 Left Lower Extremity: The left lower extremity demonstrates normal triphasic Doppler signals at the common femoral, proximal femoral arteries. Biphasic Doppler signal is present at the popliteal, posterior tibial arteries. Monophasic Doppler signal is present at the dorsalis pedis artery. Volume pulse recordings demonstrated reduced amplitude particularly at the ankle and digits levels.. There are no significant pressure differentials in the segmental limb pressures when comparing side to side or from level to level. PPG waveform from the great digit was reduced. Segmental brachial index demonstrates disease in the moderate range at the calf and ankle and severely reduced range at the digit. NICOLE 0.57 CONCLUSION: 1. Segmental/brachial indices demonstrates moderate disease at the calf and ankle bilaterally. Severe disease at the digits bilaterally. 2. Right NICOLE is 0.57. 3. Left NICOLE is 0.57. Dictated by: Christa Velasquez MD on 06/27/2017 at 11:03 Approved by: Christa Velasquez MD on 06/27/2017 at 11:03 CT CHEST (PE PROTOCOL) Observed: 03/31/2017 Status: F Source: [facility] 3:25 PM [place] [address] Patient: THANG SULTANA V. Phone#: : 1940 Age: 77 Gender: F Pt. Type: Out Account: [id number] Location: [facility] [place] Ordering: ANTONI CHOU Exam Date: 03/31/2017/15:03 Family Phys: Charge Code: [id number] Physician: Sanborn Order #: [id number] DLP Dose#: 8.60 PROCEDURE: CT CHEST WITH CONTRAST FOR PE COMPARISON: [facility], CT, CHEST PE W CON, 10/27/2016, 11:52. INDICATIONS: Pulmonary embolus TECHNIQUE: After obtaining the patient's consent, CT images were obtained with non-ionic intravenous contrast material. Multi-planar images were created to optimize visualization of vascular anatomy with MPR/MIPS and 3D imaging. All CT scans at this facility use dose modulation, iterative reconstruction, and/or weight based dosing when appropriate to reduce radiation dose to as low as reasonably achievable. IV CONTRAST: Omnipaque 350,75ml TOTAL DOSE: 8.60 CTDIvol(mGy) FINDINGS: VASCULATURE: Interval resolution of the known pulmonary emboli. No new pulmonary embolism. The previously described possible extrinsic lesion adjacent to the right pulmonary embolism is not present on the current exam and likely was all related to pulmonary embolism. AORTA: No earache and seen. There are scattered atherosclerotic calcifications of the aorta. LUNGS: No visible pulmonary disease. ROSANNE: Normal. No mass or adenopathy. MEDIASTINUM: Normal. No mass or adenopathy. CARDIAC: There are postsurgical changes of coronary artery bypass. No pericardial effusion. PLEURA: There has been interval resolution of the previously visualized pleural effusion. No effusion on today's exam. 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 Continued Report - Page 2 of 2 Patient: THANG SULTANA V. Phone#: : 1940 Age: 77 Gender: F Pt. Type: Out Account: [id number] Location: [facility] [place] Ordering: ANTONI CHOU Exam Date: 03/31/2017/15:03 Family Phys: Charge Code: [id number] Physician: Sanborn Order #: [id number] DLP Dose#: 8.60 LIMITED ABDOMEN: Normal. Limited images of the upper abdomen are unremarkable. BONES: There are degenerative changes at the acromioclavicular joints and of the spine. There is a bone island T7 vertebral body. There are median sternotomy wires. OTHER: Negative. CONCLUSION: 1. Resolution of the bilateral pulmonary emboli. 2. Resolution of the previously visualized pleural effusions. Dictated by: Elsa Espinoza MD on 03/31/2017 at 16:03 Approved by: Elsa Espinoza MD on 03/31/2017 at 16:03 CREATININE Collected: 03/28/2017 Status: F Source: [facility] 1:28 PM [facility] REPOSITORY TYPE CODE TESTS RESULT OUT OF REFERENCE UNITS RANGE LAB CREATININE 0.6 - 1.2 mg/dl (LOINC) CREATININE 0.9 Performed By: #### [id number] #### [facility],[address] [place] [address] BUN Collected: 03/28/2017 Status: F Source: [facility] 1:28 PM [facility] REPOSITORY TYPE CODE TESTS RESULT OUT OF RANGE REFERENCE UNITS LAB BUN(LOINC) 6 - 20 mg/dl BUN 18 Performed By: #### [id number] #### [facility],[address] [place] [address] 14082 CV ECHO COMPLETE Observed: 03/15/2017 Status: F Source: [facility] W/CONTRAST PER 12:21 PM [facility] PROTOCOL REPOSITORY [place] [address] Patient: THANG SULTANA V. Phone#: : 1940 Age: 77 Gender: F Pt. Type: Out Account: [id number] Location: [facility] [place] Ordering: ANNMARIE RUELAS Exam Date: 03/15/2017/11:12 Family Phys: ANTONI CHOU Charge Code: [id number] Physician: Sanborn Order #: [id number] DLP Dose#: PROCEDURE: ECHO COMPLETE WITH CONTRAST HISTORY: 77-year-old female with history of CAD, S/P CABG, postop PE INDICATIONS: CHF TECHNIQUE: A 2-D ultrasound, color spectral Doppler and M-mode evaluation of the heart and great vessels. PATIENT MEASUREMENTS: Height (in.): 57 BSA: 1.7 Weight (lbs.): 166 BP: 130/77 Veterinarian Helper: JUAN PABLO Saline bubble study performed with 9 cc's of agitated 0.9% NS injected I.V. push according to protocol. Contrast study performed using Optison injected by slow I.V. push per protocol. M MODE 2D MEASUREMENTS AND CALCULATIONS: LVIDd: 4.59 cm LVIDs: 3.05 cm IVSd: 1.29 cm LVPWd: 1.08 cm FS: 33.56 % Ao Root diam: 2.48 cm LA diam: 4.48 cm LA Volume Index: 14 mL/m2 LA A4 Area: 12.57 cm2 RA A4 Area: 9.7 cm2 RVDd: 2.00 cm TAPSE: 13 mm DOPPLER MEASUREMENTS AND CALCULATIONS MITRAL MV E MAX carlos: 75.59 cm/s MV A MAX carlos: 104.17 cm/s MV E-A ratio: 0.73 Continued Report - Page 2 of 3 Patient: THANG SULTANA V. Phone#: : 1940 Age: 77 Gender: F Pt. Type: Out Account: [id number] Location: [facility] [place] Ordering: [facility] Exam Date: 03/15/2017/11:12 Family Phys: ANTONI CHOU Charge Code: [id number] Physician: Sanborn Order #: [id number] DLP Dose#: Lat Peak E' Carlos 5 cm/s Septal Peak E' CARLOS 5 cm/s Lateral E./E.' 14.2 Medial E./E.' 14.2 AORTIC Ao V2 max: 125.41 cm/s Ao max P.29 mm[Hg] LV V1 Max 68.38 cm/s LV V1 Max PG 1.87 mm[Hg] PULMONIC PA V2 Max 92.27 cm/s PA Max PG 3.41 mm[Hg] TRICUSPID TR Max Carlos 174.86 cm/s TR max PG 12.67 mm[Hg] RVSP 20 mmHg 2D/M-MODE AND COLOR FLOW LEFT VENTRICLE: Mild concentric left ventricle hypertrophy. Mild global systolic dysfunction with dyskinesis of the apex as well as aneurysmal deformity with severe hypokinesis of mid to distal anteroseptal and anterior wall. The left ventricle systolic function is mildly reduced, ejection fraction 40-45%. Indeterminate diastolic function. WALL MOTION: 1 - Basal anterior: Hypokinetic. 7 - Mid anterior: Hypokinetic. 13 - Apical anterior: Dyskinetic. 2 - Basal anteroseptal: Hypokinetic. 8 - Mid anteroseptal: Hypokinetic. 14 - Apical septal: Dyskinetic. 3 - Basal inferoseptal: Hypokinetic. 9 - Mid inferoseptal: Hypokinetic. 15 - Apical inferior: Hypokinetic. 4 - Basal inferior: Hypokinetic. 10-Mid inferior: Hypokinetic. 16 - Apical lateral: Hypokinetic. 5 - Basal inferolateral: Hypokinetic. 11-Mid inferolateral: Hypokinetic. 6 - Basal anterolateral: Hypokinetic. 12-Mid anterolateral: Hypokinetic. RIGHT VENTRICLE: Normal size and mildly reduced systolic function. LEFT ATRIUM: Normal RIGHT ATRIUM: Normal ATRIAL SEPTUM: Atrial septal aneurysm noted with no right left interatrial shunt by agitated saline injection (negative bubble study). MITRAL VALVE: Mild mitral annular calcification. Mildly thickened leaflets with normal leaflet mobility. Trace mitral regurgitation. TRICUSPID VALVE: Normal leaflet structure and mobility. Mild tricuspid regurgitation. AORTIC VALVE: Trileaflet aortic valve with focal calcification of noncoronary cusp and normal leaflet mobility. No significant aortic stenosis or regurgitation. PULMONIC VALVE: Normal leaflet structure and mobility. Trace pulmonic insufficiency. Continued Report - Page 3 of 3 Patient: THANG SULTANA V. Phone#: : 1940 Age: 77 Gender: F Pt. Type: Out Account: [id number] Location: [facility] [place] Ordering: ANNMARIE RUELAS Exam Date: 03/15/2017/11:12 Family Phys: ANTONI SHEARERMORISKAYLA Charge Code: [id number] Physician: Sanborn Order #: [id number] DLP Dose#: AORTIC ROOT: Normal size and mildly calcified IVC/SVC: Normal size and normal respirophasic response PERICARDIUM: No significant pericardial effusion CONCLUSION: 1. Technically difficult study due to poor acoustic windows. Optison contrast agent was used to better delineate the endocardial borders. 2. Mild concentric left ventricle hypertrophy with mild global systolic dysfunction with dyskinesis of the apex as well as aneurysmal deformity with severe hypokinesis of mid to distal anteroseptal and anterior wall. Left ventricle systolic function 40-45%. 3. Normal right ventricle size and mildly reduced systolic function. 4. Atrial septal aneurysm with no right to left interatrial shunt by agitated saline injection. 5. Mild mitral annular calcification with trace mitral regurgitation. 6. Mild tricuspid regurgitation. 7. Indeterminate diastolic function. 8. RVSP estimated to be 20 mmHg. 9. As compared to the last study of 10/28/2016, mild improvement in left ventricle systolic function is noted.. Dictated by: ANNMARIE RUELAS on 03/16/2017 at 10:42 Approved by: ANNMARIE RUELAS on 03/16/2017 at 10:42 ALLERGIES ALLERGIES DATE TYPE / CODE NAME / CODE REACTION SEVERITY SOURCE 12/26/2017 Drug tetanus Swelling Unknown [place] Allergy/115615324(S immune [facility] NOM[facility]) globulin/F006 Hospital 332392(RXNORM Repository ) 12/26/2017 Miscellaneous TAPE Rash Unknown [place] Allergy/508610813(S [facility] NOM[facility]) Hospital Repository Drug TETANUS Moderate [place] Allergy/699711058(S TOXOID/067978 ([facility]everity [facility]) 40(RXNORM) Modifier) Hospital (Qualifier Repository Value) Drug TETANUS/04487 Moderate [place] Allergy/159234097(S 158(RXNORM) (Severity [facility]) Modifier) Hospital (Qualifier Repository Value) ENCOUNTERS ENCOUNTERS ADMIT/DISCHARGE ACCOUNT ADMITTING ENCOUNTER LOCATION SOURCE NUMBER CLASS 03/01/2018 [id number] Ambulatory [place] 7 [facility] ing:LAB Repository 12/26/2017/ [id number] [facility], Ambulatory [place] Nii [address] [place] [address] ing:XR4Jlge: Repository PP231Psw: 1 12/26/2017 [id number] [facility], Ambulatory BMSBuilding:B Nii 4 [facility] Repository 12/26/2017 [id number] [facility], Ambulatory BMSBuilding:B [place] 6 [facility] Repository 12/15/2017 [id number] Ambulatory Nii Nii 2 [facility] ing:LAB Repository 12/09/2017/ [id number] [facility], Ambulatory [place] 8 [facility] Repository 09/29/2017/ [id number] [facility], Ambulatory [place] 8 [facility] Repository 09/23/2017/ [id number] [facility], Ambulatory [place] 8 [facility] Repository 09/09/2017/ [id number] [facility], Ambulatory [place] 8 [facility] Repository 08/29/2017 [id number] [place] 1 [facility] ing:LAB Repository 08/22/2017 [id number] Ambulatory [place] Nii 9 [facility] ing:CVS Repository 06/24/2017/ [id number] [facility]ACC[facility], Ambulatory [place] 8 [facility] Repository 03/31/2017/ [id number] [facility], Ambulatory [place] 8 [facility] Repository 03/28/2017/ [id number] [facility], Ambulatory [place] 8 [facility] Repository 03/28/2017 [id number] [facility]ACC[facility]LLO, Ambulatory [place] [facility] Repository 03/15/2017/ [id number] SURAJ, Ambulatory [place] 8 [facility] Repository PAYERS PAYERS ENCOUNTER GUARANTOR PAYER SUBSCRIBER SOURCE 03/01/2018 ADA V [id number] Primary ADA V PURDYDOB: [place] Insurance:HUMANA [id number] [place] [facility] [facility] [address]Ohq: (330) Number: Repository [phone] () [id number] Date:5763-80-84AW [address] [address]DH: 03/01/2018 Secondary NOT GIVENUNK [place] Insurance:SELF PAY [facility] Number: Effective Repository Date:2018-03-01 12/26/2017 ADA V [id number] Primary ADA V PURDYDOB: [place] Insurance:HUMANA [id number] [place] [facility] [address]Cud: (330) Number: Repository [phone] () [id number] Date:3827-61-58HU [address] [address]KG: 12/26/2017 Secondary NOT GIVENUNK [place] Insurance:SELF PAY [facility] Number: Effective Repository Date:2017-12-26 12/26/2017 ADA V [id number] Primary ADA V PURDYDOB: [place] Insurance:HUMANA [id number] [place] [facility] [address]Ktu: (330) Number: Repository [phone] () [id number] Date:9036-46-07IF [address] [address]WX: 12/26/2017 Secondary NOT GIVENUNK [place] Insurance:SELF PAY [facility] Number: Effective Repository Date:2017-12-26 12/26/2017 ADA V [id number] Primary ADA V PURDYDOB: [place] Insurance:HUMANA [id number] [place] [facility] [address]Iqp: (330) Number: Repository [phone] () [id number] Date:[id number] [address] [address]MX: 12/26/2017 Secondary NOT GIVENUNK [place] Insurance:SELF PAY [facility] Number: Effective Repository Date:2017-12-26 12/15/2017 ADA V [id number] Primary ADA V PURDYDOB: [place] Insurance:HUMANA [id number] [place] [facility] [facility] [address]Qlx: (330) Number: Repository [phone] () [id number] Date:0128-21-72SI [address] [address]LD: 12/15/2017 Secondary NOT GIVENUNK [place] Insurance:SELF PAY [facility] Number: Effective Repository Date:2017-12-15 12/09/2017 ADA V PURDYDOB: Primary ADA V PURDYDOB: [place] Insurance:HUMANA [id number] [facility] [place] [facility] [place] Rep[place] [address]Xar: (330) Number: [phone] () [id number] Date:Plan Name: 09/29/2017 ADA V PURDYDOB: Primary ADA V PURDYDOB: [place] Insurance:HUMANA [id number] [facility] [place] [facility] [place] Repository [address]Ckq: (330) Number: [phone] () [id number] Date:Plan Name: 09/23/2017 ADA V PURDYDOB: Primary ADA V PURDYDOB: [place] Insurance:HUMANA [id number] [facility] [place] [facility] [place] Repository [address]Kce: (330) Number: [phone] () [id number] Date:Plan Name: 09/09/2017 ADA V PURDYDOB: Primary ADA V PURDYDOB: [place] Insurance:HUMANA [id number] [facility] [facility] [place] Repository [address]Bva: (330) Number: [phone] () [id number] Date:Plan Name: 08/29/2017 Ada Helen Primary Ada Helen Nii [id number] [place] Insurance:HUMANA PurdyDOB: [place] [id number] [facility] [address]Qli: (330) Number: Repository [phone] () [id number] Date:3611-41-58UT [address] [address]WM: 08/29/2017 Secondary NOT GIVENUNK Nii Insurance:SELF PAY [facility] Number: Effective Repository Date:2017-08-29 08/22/2017 Ada Helen Primary Ada Helen [place] [id number] [place] Insurance:HUMANA Pur[place]DOB: [place] [id number] [facility] [address]Vln: (330) Number: Repository [phone] () [id number] Date:2116-48-04LL [address] [address]HD: 08/22/2017 Secondary NOT GIVENUNK [place] Insurance:SELF PAY [facility] Number: Effective Repository Date:2017-08-05 06/24/2017 ADA V PURDYDOB: Primary ADA V PURDYDOB: [place] Insurance:[facility] [id number] [facility] [place] MED[facility] [facility] [place] Rep[place] [address]Oae: (330) Number: [phone] () [id number] Date:Plan Name: 03/31/2017 ADA V PURDYDOB: Primary ADA V PURDYDOB: [place] Insurance:[facility] [id number] [facility] [place] MED[facility] [place] [facility] [place] Repository [address]Pev: (330) Number: [phone] () [id number] Date:Plan Name: 03/28/2017 ADA V PURDYDOB: Primary ADA V PURDYDOB: [place] Insurance:[facility] [id number] [facility] [place] MED[facility] [place] Rep[place] [address]Lza: (330) Number: [phone] () [id number] Date:Plan Name: 03/28/2017 ADA V PURDYDOB: Primary ADA V PURDYDOB: [place] Insurance:[facility] [id number] [facility] MEDIC[facility] [place] Repository [id number]: (330) Number: [phone] () [id number] Date:Plan Name: 03/15/2017 ADA V PURDYDOB: Primary ADA V PURDYDOB: Bravo Ndiaye Insurance:[facility] [id number] [facility] [employer] [facility] [place] [facility] [place] Rep[facility] [address]Oou: (330) Number: [phone] () [id number] Date:Plan Name:
== END ==
PROVIDERS: Family Provider Family Medicine; PCP Family Medicine; Referring Provider Anesthesiology Pain Medicine; Visit Provider Anesthesiology Pain Medicine
DX: F11.20 Opioid dependence, uncomplicated (principal)
CPT/HCPCS: 80307

== ENCOUNTER → 2018-10-04 09:01 | Outpatient (CLI) | payer MEDICARE, MEDICAID, SELFPAY ==
[2017-12-26 11:47] VITALS: BMI 40.4
[2018-10-04 09:39] LABS: Amphetamine Urine VISTA NEGATIVE (<1000 ng/mL); Barbiturate Urine VISTA NEGATIVE (< 200 ng/mL); Benzodiazepine Urine VISTA NEGATIVE (< 200 ng/mL); Cocaine Urine VISTA NEGATIVE (< 300 ng/mL); Ecstacy Urine VISTA NEGATIVE (< 500 ng/mL); Methadone Urine VISTA NEGATIVE (< 300 ng/mL); PCP Urine VISTA NEGATIVE (< 25 ng/mL); THC Urine VISTA NEGATIVE (< 50 ng/mL); Vista UDS pH Range 7
== END ==
PROVIDERS: Family Provider Family Medicine; PCP Family Medicine; Referring Provider Anesthesiology Pain Medicine; Visit Provider Anesthesiology Pain Medicine
DX: F11.20 Opioid dependence, uncomplicated (principal)
CPT/HCPCS: 80307

== ENCOUNTER → 2018-12-28 16:50 | Outpatient (CLI) | payer MEDICARE, MEDICAID, SELFPAY ==
[2017-12-26 11:47] VITALS: BMI 40.4
--- NOTE | 2018-12-28 17:32 | MRI_ITS ---
HISTORY: low back pain into bilateral worsening over the last 3 months COMPARISON: CT abdomen and pelvis 12/26/2018 TECHNIQUE: Multiplanar, multisequence MRI of the lumbar spine without IV contrast. FINDINGS: No evidence of fracture or suspicious bone lesion. Conus ends at L1-2. Unremarkable paraspinous soft tissues. Degenerative changes with moderate disc space narrowing and disc bulging at T10-11 and T11-12 without significant canal or foraminal stenosis. Minimal disc bulging at T12-L1. L1-L2: Disc desiccation and minimal disc bulging. Facet arthropathy. No significant canal or foraminal stenosis. L2-L3: Mild disc bulging. Facet arthropathy. No significant canal or foraminal stenosis. L3-L4: Mild disc space narrowing. Central disc protrusion with facet and ligamentous hypertrophy resulting in moderate to severe central canal stenosis. L4-L5: Mild disc space narrowing. Diffuse disc bulging, facet and ligamentous hypertrophy with severe central canal stenosis. No significant foraminal stenosis. L5-S1: Mild diffuse disc bulging. Facet and ligamentous hypertrophy. Severe central canal stenosis. Moderate left foraminal stenosis and left lateral recess stenosis. MRI/Spine Lumbar (Routine) IMPRESSION: Degenerative changes as detailed above, most severe at L4-5 and L5-S1 with severe central canal stenosis. at 0043 Reported and signed by: Starla Jalloh MD Electronically Signed: Starla Jalloh MD at 0:43 EST Tel , Service support ,
== END ==
PROVIDERS: Family Provider Family Medicine; PCP Family Medicine; Referring Provider Anesthesiology Pain Medicine; Visit Provider Anesthesiology Pain Medicine
DX: M54.9 Dorsalgia, unspecified (principal); M79.606 Pain in leg, unspecified
CPT/HCPCS: 72148

== ENCOUNTER → 2019-09-26 15:07 | Outpatient (CLI) | payer MEDICARE, MEDICAID, SELFPAY ==
[2017-12-26 11:47] VITALS: BMI 40.4
[2019-09-26 16:52] LABS: Amphetamine Urine VISTA NEGATIVE (<1000 ng/mL); Barbiturate Urine VISTA NEGATIVE (< 200 ng/mL); Benzodiazepine Urine VISTA NEGATIVE (< 200 ng/mL); Cocaine Urine VISTA NEGATIVE (< 300 ng/mL); Ecstacy Urine VISTA NEGATIVE (< 500 ng/mL); Methadone Urine VISTA NEGATIVE (< 300 ng/mL); PCP Urine VISTA NEGATIVE (< 25 ng/mL); THC Urine VISTA NEGATIVE (< 50 ng/mL); Vista UDS pH Range 5
== END ==
PROVIDERS: PCP Family Medicine; Referring Provider Anesthesiology Pain Medicine; Visit Provider Anesthesiology Pain Medicine
DX: F11.20 Opioid dependence, uncomplicated (principal)
CPT/HCPCS: 80307

== ENCOUNTER → 2020-07-02 11:02 | Outpatient (CLI) | payer MEDICARE, MEDICAID, SELFPAY ==
[2020-06-25 10:18] VITALS: BMI 38.9
== END ==
PROVIDERS: PCP Family Medicine; Referring Provider Anesthesiology Pain Medicine; Visit Provider Anesthesiology Pain Medicine
DX: F11.20 Opioid dependence, uncomplicated (principal)
CPT/HCPCS: 80307